=== PATIENT | female | born 1965 | race Hispanic/Latino ===

== ENCOUNTER 2021-09-06 18:46 | Emergency (ER) | payer SELFPAY ==
--- OUTSIDE RECORDS SUMMARY | 2021-09-06 18:49 | XMS REPORT | Continuity of Care Document ---
:1965 Author Organization [facility] t Address [address] [place] [address] [address]. [address] [place] [address] Care Team Providers Name Role Phone Leonie Benitez Primary Care Physician Leonie Benitez Attending Clinician Kelly Hernandez LMSW Attending Clinician Дмитрий Dawkins MD Attending Clinician Problems Condition Condition Condition Status Onset Resolution Last Treating Co mments Source Name Details Category Date Date Treatment Clinician Date Uninsured Uninsured Disease Active Uni vers 3-24 ity of 00:00: [place] 00 [facility] Noncomplia Noncomplia Disease Active U sd nce with nce with 3-24 [place] testing [place] 00 [facility] Hyperthyro Hyperthyro Disease Active U nivhemanth idism idism 11-06 ity of 00:00: [place] 00 [facility] 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 11-06 it y of fic fic 00:00: [place] alkaline alkaline 00 Medica l phosphatas phosphatas Br anch e e Thrombocyt Thrombocyt Disease Active U nivers openia openia 11-06 ity of 00:00: [place] 00 [facility] Beta Beta Disease Active Univers thalassemi thalassemi 11-06 it y of a trait a trait 00:00: [place] 00 [facility] Tobacco Tobacco Disease Active Univers use use 11-01 ity of 00:00: Medical Branch DM2 DM2 Disease Active Univers (diabetes (diabetes [place] of mellitus, mellitus[place] type 2[place] type 2) Medical [facility] Allergic Allergic Disease Active Unive rs rhinitis rhinitis ity of [facility] Anxiety Anxiety Disease Active Univers ity of [facility] Peripheral Peripheral Disease Active U nivers neuropathy neuropathy it y of [facility] Allergies, Adverse Reactions, Alerts This patient has no known allergies or adverse reactions. Social History Social Habit Start Date Stop Date Quantity Comments Source History SDOH University o f Alcohol Frequency [facility] edical History SDNC University o f Alcohol Std Drinks [facility] Branch History [facility] University o f Alcohol Binge [facility] al Branch Exposure to Not sure [place] of SARS-CoV-2 (event) [facility] History of tobacco Cigarette Smoker University of use [facility] Alcohol intake 2021-08-22 2021-08-22 Current drinker Unive rsity of 00:00:00 00:00:00 of alcohol [facility] (finding) Branch Cigarettes smoked 2017-10-20 2017-10-20 Univers ity of current (pack per 00:00:00 00:00:00 [facility] ) - Reported Branch Tobacco use and 2017-10-20 2017-10-20 Never used Universit y of exposure 00:00:00 00:00:00 [facility] Alcohol Comment 2017-10-20 2017-10-20 special Universit y of 00:00:00 00:00:00 occasions [facility] Sex [birth year] Universit y of 00:00:00 00:00:00 [facility] Smoking Status Start Date Stop Date Source Current every day smoker 2017-10-20 00:00:00 Uni versity of [facility] Medications Ordered Filled Start Stop Current Ordering Indication Dosage Frequency Signature Comments Components Source Medication Medication Date Date Medication? Clinician (SIG) Name Name metFORMIN Yes [id number] 500mg Take 1 U nivers 500 mg 3-23 tablet by ity of tablet 00:00: mouth 3 (three) Medical times [place] daily with meals. loratadine Yes [id number] 10mg Take 1 U nivers 10 mg 3-23 tablet by ity of tablet 00:00: mouth once [place] 00 daily as Medical needed for Branch Allergies. gabapentin 0 Yes [id number] 300mg Take 1 Univers 300 mg 3-23 capsule by ity of capsule 00:00: mouth 3 (three) Medical times Branch daily. fluticasone 2021-0 Yes [id number] 2{spray Use 2 Univers propionate 3-23 } Sprays in ity of 50 00:00: each [place] mcg/actuati 00 nostril Medic al on nasal daily. Branch spray busPIRone 0 Yes [id number] 15mg Take 1 Un ar[place] 15 mg 3-23 tablet by ity of tablet 00:00: mouth 2 (two) Medical times Branch daily as needed (anxiety). metFORMIN 2021-0 Yes [id number] 500mg Take 1 U nivers 500 mg 3-23 tablet by ity of tablet 00:00: mouth 3 (three) Medical times Branch daily with meals. loratadine Yes [id number] 10mg Take 1 U nivers 10 mg 3-23 tablet by ity of tablet 00:00: mouth once 00 daily as Medical needed for Branch Allergies. gabapentin Yes [id number] 300mg Take 1 Univers 300 mg 3-23 capsule by ity of capsule 00:00: mouth 3 (three) Medical times Branch daily. fluticasone 2021-0 Yes [id number] 2{spray Use 2 Univers propionate 3-23 } Sprays in ity of 50 00:00: each [place] mcg/actuati 00 nostril Medic al on nasal daily. Branch spray busPIRone 0 Yes [id number] 15mg Take 1 Un [place] 15 mg 3-23 tablet by ity of tablet 00:00: mouth 2 (two) Medical times Branch daily as needed (anxiety). metFORMIN 2021-0 Yes [id number] 500mg Take 1 U nivers 500 mg 3-23 tablet by ity of tablet 00:00: mouth 3 (three) Medical times Branch daily with meals. loratadine 2021-0 Yes [id number] 10mg Take 1 U nivers 10 mg 3-23 tablet by ity of tablet 00:00: mouth once 00 daily as Medical needed for Branch Allergies. gabapentin 2021-0 Yes [id number] 300mg Take 1 Univers 300 mg 3-23 capsule by ity of capsule 00:00: mouth 3 [place] 00 (three) Medical times Branch daily. fluticasone Yes [id number] 2{spray Use 2 Univers propionate 3-23 } Sprays in ity of 50 00:00: each [place] mcg/actuati 00 nostril Medic al on nasal daily. Branch spray busPIRone Yes [id number] 15mg Take 1 Un [place] 15 mg 3-23 tablet by ity of tablet 00:00: mouth 2 [place] 00 (two) Medical times Branch daily as needed (anxiety). metFORMIN Yes [id number] 500mg Take 1 U nivers 500 mg 3-23 tablet by ity of tablet 00:00: mouth 3 00 (three) Medical times Branch daily with meals. loratadine Yes [id number] 10mg Take 1 U nivers 10 mg 3-23 tablet by ity of tablet 00:00: mouth once [place] 00 daily as Medical needed for Branch Allergies. gabapentin Yes [id number] 300mg Take 1 Univers 300 mg 3-23 capsule by ity of capsule 00:00: mouth 3 [place] 00 (three) Medical times Branch daily. fluticasone Yes [id number] 2{spray Use 2 Univers propionate 3-23 } Sprays in ity of 50 00:00: each [place] mcg/actuati 00 nostril Medic al on nasal daily. Branch spray busPIRone Yes [id number] 15mg Take 1 Un [place] 15 mg 3-23 tablet by ity of tablet 00:00: mouth 2 [place] 00 (two) Medical times Branch daily as needed (anxiety). metFORMIN 2021- No [id number] 500mg Take 1 Univers 500 mg 06-12-23 tablet by ity of tablet 00:00: 00:00 mouth 3 [place] 00 :00 (three) Medical times Branch daily with meals. gabapentin 2- No [id number] 300mg Take 1 Univers 300 mg 1-05 03-23 capsule by ity of capsule 00:00: 00:00 mouth 3 [place] 00 :00 (three) Medical times Branch daily. busPIRone 2- No [id number] 15mg Take 1 U nivers 15 mg 1-12 03-23 tablet by ity of tablet 00:00: 00:00 mouth 2 [place] 00 :00 (two) Medical times Branch daily as needed (anxiety). loratadine 2021- No [id number] 10mg Take 1 Univers 10 mg 06-12 tablet by ity of tablet 00:00: 00:00 [place] once [place] :00 daily as Medical needed for Branch Allergies. fluticasone 2021- No [id number] 2{spray Use 2 Univers propionate 06-12 } Sprays in ity of 50 00:00: 00:00 each [place] mcg/actuati 00 :00 nostril Medic al on nasal daily. Branch spray metFORMIN 2021- No [id number] 500mg Take 1 Univers 500 mg 06-12 tablet by ity of tablet 00:00: 00:00 mouth 3 [place] 00 :00 (three) Medical times Branch daily with meals. gabapentin 2021- No [id number] 300mg Take 1 Univers 300 mg 06-12 capsule by ity of capsule 00:00: 00:00 mouth 3 [place] 00 :00 (three) Medical times Branch daily. busPIRone 2021- No [id number] 15mg Take 1 U nivers 15 mg 06-12 tablet by ity of tablet 00:00: 00:00 mouth 2 [place] 00 :00 (two) Medical times Branch daily as needed (anxiety). loratadine 2021- No [id number] 10mg Take 1 Univers 10 mg 06-12 tablet by ity of tablet 00:00: 00:00 mouth once [place] 00 :00 daily as Medical needed for Branch Allergies. fluticasone 2021- No [id number] 2{spray Use 2 Univers propionate 06-12 } Sprays in ity of 50 00:00: 00:00 each [place] mcg/actuati 00 :00 nostril Medic al on nasal daily. Branch spray Vital Signs Vital Name Observation Time Observation Value Comments Source Systolic blood 2021-08-21 14:05:00 138 mm[facility]Hg[facility] pressure Medical Branch Diastolic blood 2021-08-21 14:05:00 79 mm[Hg] [facility] pressure [facility] Heart rate 2021-08-21 14:00:00 76 /min [facility] Body height 2021-08-21 14:00:00 162.6 cm [facility] Body weight 2021-08-21 14:00:00 91.173 kg [facility] BMI 2021-08-21 14:00:00 34.50 kg/m2 [facility] Oxygen saturation 2021-08-21 14:00:00 98 /min [facility] in Arterial blood Medical anch by Pulse oximetry Procedures This patient has no known procedures. Encounters Start End Encounter Admission Attending Care Care Encounter Source Date/Time Date/Time Type Type Clinicians Facility Department ID 2021-08-30 2021-08-30 Telephone Dede [facility] [id number] Univers 00:00:00 00:00:00 Heekya [id number] it [facility] [id number] Akil as ISABELLE?BLEA [id number] [address] MEDICAL OFFICE BUILDING 2021-08-23 2021-08-23 Patient David [facility] [id number] Univers 00:00:00 00:00:00 Outreach Kelly D Warp 9 [id number] ity of [place] [id number] Akil as PROFESSIO [id number] [address] OFFICE BUILDING ONE 2021-08-21 2021-08-21 Office Juancho [facility] [id number] Univers 09:00:00 09:48:43 Visit WonPlayrific A Warp 9 [id number] ity of [place] [id number] Akil as ISABELLE?BLEA [id number] [address] OFFICE BUILDING Results This patient has no known results.
[2021-09-06] MEDS ORDERED: ACETAMINOPHEN 500 MG TAB ONE (19:07)
[2021-09-06] MEDS ORDERED: IBUPROFEN 200 MG TAB PO ONE (20:02)
[2021-09-06] MEDS ORDERED: ONDANSETRON 4 MG/2 ML VIAL ONE (20:02)
[2021-09-06] MEDS ORDERED: NA CHLORIDE 0.9% 1,000 ML ONE (20:02)
[2021-09-06 20:14] LABS: Absolute Lymphocytes (CBC) 0.5 K/uL (0.7-4.9); Hematocrit 39.1 % (36.0-45.0); Lymphocytes % 4.9 % (15.3-44.8); MPV 9.6 fL (7.6-11.3); RBC Red Blood Cell Count 6.52 M/uL (3.86-4.86)
[2021-09-06 20:21] LABS: SARS-COV-2 RT PCR NEGATIVE (NEGATIVE)
[2021-09-06 20:28] LABS: Albumin 2.8 g/dL (3.4-5.0); Bilirubin Total 1.2 mg/dL (0.2-1.0); Potassium 3.7 mmol/L (3.5-5.1); Protein, Total 7.1 g/dL (6.4-8.2)
--- NOTE | 2021-09-06 20:48 | EDPHYS ---
Physician Documentation [facility] [place] [facility] Name: Remedios Elizalde Age: 56 yrs Sex: Female : 1965 Arrival Date: 09/06/2021 Time: 18:49 Bed 12 Private MD: ED Physician Edward Brock HPI: 09/06 19:54 This 56 yrs old Female presents to ER via Ambulatory with complaints of Fever, ms3 Dizziness, Vomiting. 19:54 The patient reports fever, not measured (subjective). Onset: The symptoms/episode ms3 began/occurred 2 day(s) ago. Modifying factors: there are no obvious modifying factors. Associated signs and symptoms: Pertinent positives: chills, nausea, vomiting, Pertinent negatives: abdominal pain, diarrhea. 56-year-old female with past medical history of diabetes presents for lightheadedness, fever began 2 days prior to arrival. Patient denies pain. Patient denies alleviating or inciting factors. Patient endorses subjective fever, chills, nausea, vomiting, lightheadedness. Patient denies diarrhea, abdominal pain, urinary symptoms.. Historical: - Allergies: 19:00 No Known Allergies; ab2 - PMHx: 19:00 None; ab2 - PSHx: 19:00 None; ab2 - Immunization history:: Adult Immunizations up to date. - Social history:: Smoking status: Patient reports the use of cigarette tobacco products, smokes one-half pack cigarettes per day. ROS: 19:54 Eyes: Negative for injury, pain, redness, and discharge, Cardiovascular: Negative for ms3 chest pain, and palpitations. Respiratory: Negative for shortness of breath, cough, wheezing, and pleuritic chest pain, MS/Extremity: Negative for injury and deformity, Skin: Negative for injury, rash, and discoloration, Psych: Negative for depression, anxiety, suicide ideation, homicidal ideation, and hallucinations. 19:54 Constitutional: Positive for chills. 19:54 Abdomen/GI: Positive for nausea and vomiting, Negative for abdominal pain, diarrhea. 19:54 Neuro: Positive for 19:54 All other systems are negative. Exam: 19:54 Constitutional: This is a well developed, well nourished patient who is awake, alert, ms3 and in no acute distress. Head/Face: Normocephalic, atraumatic. Chest/axilla: Normal chest wall appearance and motion. Nontender with no deformity. Cardiovascular: Regular rate and rhythm with a normal S1 and S2. No gallops, murmurs, or rubs. Normal PMI, no JVD. No pulse deficits. Respiratory: Lungs have equal breath sounds bilaterally, clear to auscultation and percussion. No rales, rhonchi or wheezes noted. No increased work of breathing, no retractions or nasal flaring. Abdomen/GI: Soft, non-tender, with normal bowel sounds. No distension or tympany. No guarding or rebound. No evidence of tenderness throughout. Back: No spinal tenderness. No costovertebral tenderness. Full range of motion. Skin: Warm, dry with normal turgor. Normal color with no rashes, no lesions, and no evidence of cellulitis. Psych: Awake, alert, with orientation to person, place and time. Behavior, mood, and affect are within normal limits. Vital Signs: 18:58 BP 111 / 70; Pulse 107; Resp 20; Temp 102.8(O); Pulse Ox 98% on R/A; Weight 90.72 kg; ab2 Height 5 ft. 4 in. (162.56 cm); Pain 0/10; 20:22 BP 118 / 72; Pulse 84 MON; Resp 16 S; Pulse Ox 100% on R/A; Pain 0/10; ag7 20:30 BP 113 / 64; Pulse 83; Resp 16 S; Pulse Ox 100% on R/A; Pain 0/10; ag7 21:00 BP 153 / 80; Pain 0/10; ag7 18:58 Body Mass Index 34.33 (90.72 kg, 162.56 cm) ab2 MDM: 19:28 Patient medically screened. ms3 19:54 Differential diagnosis: viral Infection, gastroenteritis, COVID. ms3 21:15 Data reviewed: vital signs, nurses notes, lab test result(s). Data interpreted: Pulse ms3 oximetry: on room air is 98 %. Interpretation: normal. Counseling: I had a detailed discussion with the patient and/or guardian regarding: the historical points, exam findings, and any diagnostic results supporting the discharge/admit diagnosis, lab results, the need for outpatient follow up, to return to the emergency department if symptoms worsen or persist or if there are any questions or concerns that arise at home. Medication response: Zofran markedly relieved the patient's nausea. Response to treatment: the patient's symptoms have markedly improved after treatment, patient is well hydrated. ED course: Discussed labs, physical exam findings with patient and her . Patient to follow-up with her primary care physician as discussed. All questions were answered. Return precautions discussed include worsening symptoms, or any other concerns. Reevaluation patient symptoms improved, no apparent distress, nontoxic, ambulatory in the emergency department, tolerating p.o.. 09/06 19:01 Order name: COVID-19/FLU A+B (Document "Date of Onset" if Symptomatic); Complete Time: kb 20:36 09/06 19:29 Order name: CBC with Diff ms3 09/06 19:29 Order name: CMP; Complete Time: 20:36 ms3 09/06 19:29 Order name: IV Saline Lock; Complete Time: 19:54 ms3 09/06 19:29 Order name: Labs collected and sent; Complete Time: 19:54 ms3 Administered Medications: 19:04 Drug: Tylenol 1000 mg Route: PO; ab2 19:34 Follow up: Response: No adverse reaction ag7 20:07 Drug: Ibuprofen 600 mg Route: PO; ag7 20:37 Follow up: Response: No adverse reaction ag7 20:08 Drug: NS 0.9% 1000 ml Route: IV; Rate: 1000 ml; Site: right wrist; ag7 21:08 Follow up: Response: No adverse reaction; IV Status: Completed infusion; IV Intake: ag7 1000ml 20:08 Drug: Zofran (Ondansetron) 4 mg Route: IVP; Site: right wrist; ag7 20:37 Follow up: Response: No adverse reaction ag7 Disposition Summary: 09/06/21 20:48 Discharge Ordered Location: Home ms3 Problem: new ms3 Symptoms: have improved ms3 Condition: Stable ms3 Diagnosis - Vomiting ms3 - Fever, unspecified ms3 - Viral illness ms3 - Dehydration ms3 Followup: ms3 - With: Private Physician - When: 2 - 3 days - Reason: Re-evaluation by your physician Discharge Instructions: - Discharge Summary Sheet ms3 - Dehydration, Adult ms3 - Nausea and Vomiting, Adult ms3 Forms: - Medication Reconciliation Form ms3 - Thank You Letter ms3 - Antibiotic Education ms3 - Prescription Opioid Use ms3 Prescriptions: - Zofran 4 mg Oral Tablet - take 1 tablet by ORAL route every 8-12 hours As needed; 20 tablet; Refills: 0, ms3 Product Selection Permitted Signatures: Dispatcher [employer] Ramona Madsen, BIOMASS FACILITATOR-C BIOMASS FACILITATOR-CkEdward Coe, DO ms3 Kervin Stewart ab2 Denisse Mitchell, RN RN ag7
--- NOTE | 2021-09-06 20:48 | ER ---
Nurse's Notes [facility] Name: Remedios Elizalde Age: 56 yrs Sex: Female : 1965 Arrival Date: 09/06/2021 Time: 18:49 Bed 12 Private MD: Diagnosis: Vomiting;Fever, unspecified;Viral illness;Dehydration Presentation: 09/06 18:58 Chief complaint: Patient states: "For the past few days I have been having a fever and ab2 I've been dizzy." Pt c/o n/v, fever, cough. Coronavirus screen: Vaccine status: Patient reports receiving the 2nd dose of the covid vaccine. Client denies travel out of the [place] in the last 14 days. cough unrelated to allergies, fever, nausea, vomiting. Client presents with at least one sign or symptom that may indicate coronavirus-19. Standard/surgical mask placed on the client. Provider contacted for isolation considerations. Ebola Screen: Patient negative for fever greater than or equal to 101.5 degrees Fahrenheit, and additional compatible Ebola Virus Disease symptoms Patient denies exposure to infectious person. Patient denies travel to an Ebola-affected area in the 21 days before illness onset. No symptoms or risks identified at this time. Initial Sepsis Screen: Does the patient meet any 2 criteria? No. Patient's initial sepsis screen is negative. Does the patient have a suspected source of infection? No. Patient's initial sepsis screen is negative. Risk Assessment: Do you want to hurt yourself or someone else? Patient reports no desire to harm self or others. Onset of symptoms is unknown. 18:58 Method Of Arrival: Ambulatory ab2 18:58 Acuity: KAYLA 3 ab2 Triage Assessment: 19:01 General: Appears in no apparent distress. uncomfortable, Behavior is calm, cooperative, ab2 appropriate for age. Pain: Denies pain. EENT: No deficits noted. Neuro: Level of Consciousness is awake, alert, obeys commands, Oriented to person, place, time, situation, Appropriate for age Remedial [place] are equal bilaterally Moves all extremities. Gait is steady, Speech is normal, Facial symmetry appears normal, Reports dizziness. Cardiovascular: No deficits noted. Denies chest pain, shortness of breath, Patient's skin is warm and dry. Respiratory: Airway is patent Respiratory effort is even, unlabored, Respiratory pattern is regular, symmetrical. GI: Reports nausea, vomiting. : No deficits noted. No signs and/or symptoms were reported regarding the genitourinary system. Derm: Skin temperature is hot. Historical: - Allergies: 19:00 No Known Allergies; ab2 - PMHx: 19:00 None; ab2 - PSHx: 19:00 None; ab2 - Immunization history:: Adult Immunizations up to date. - Social history:: Smoking status: Patient reports the use of cigarette tobacco products, smokes one-half pack cigarettes per day. Screenin:31 Abuse screen: Denies threats or abuse. Nutritional screening: No deficits noted. ag7 Tuberculosis screening: No symptoms or risk factors identified. Fall Risk No fall in past 12 months (0 pts). No secondary diagnosis (0 pts). IV access (20 points). Ambulatory Aid- None/Bed Rest/Nurse Assist (0 pts). Gait- Normal/Bed Rest/Wheelchair (0 pts) Mental Status- Oriented to own ability (0 pts). Total Hickman Fall Scale indicates No Risk (0-24 pts). Assessment: 19:04 General: Appears in no apparent distress. well groomed, well developed, Behavior is ag7 calm, cooperative, appropriate for age, Reports fever for. Pain: Denies pain. Neuro: Level of Consciousness is awake, alert, obeys commands, Oriented to Appropriate for age. Cardiovascular: Heart tones S1 S2 present Capillary refill < 3 seconds in bilateral fingers toes Patient's skin is warm and dry. Pulses are all present. Edema is absent. Respiratory: Airway is patent Trachea midline Respiratory effort is even, unlabored, Respiratory pattern is regular, symmetrical, Breath sounds are clear bilaterally. GI: Abdomen is obese, Bowel sounds present X 4 quads. Abd is soft and non tender X 4 quads. Reports nausea. 20:00 Reassessment: Patient and/or family updated on plan of care and expected duration. Pain ag7 level reassessed. Patient is alert, oriented x 3, equal unlabored respirations, skin warm/dry/pink. Patient denies pain at this time. Vital Signs: 18:58 BP 111 / 70; Pulse 107; Resp 20; Temp 102.8(O); Pulse Ox 98% on R/A; Weight 90.72 kg; ab2 Height 5 ft. 4 in. (162.56 cm); Pain 0/10; 20:22 BP 118 / 72; Pulse 84 MON; Resp 16 S; Pulse Ox 100% on R/A; Pain 0/10; ag7 20:30 BP 113 / 64; Pulse 83; Resp 16 S; Pulse Ox 100% on R/A; Pain 0/10; ag7 21:00 BP 153 / 80; Pain 0/10; ag7 18:58 Body Mass Index 34.33 (90.72 kg, 162.56 cm) ab2 ED Course: 18:49 Patient arrived in ED. mr 19:00 Triage completed. ab2 19:01 Arm band placed on right wrist. ab2 19:05 COVID-19/FLU A+B (Document "Date of Onset" if Symptomatic) Sent. ab2 19:12 Edward Brock DO is Attending Physician. ms3 20:32 Patient has correct armband on for positive identification. Bed in low position. Call ag7 light in reach. Side rails up X 1. Adult w/ patient. 20:59 Denisse Mitchell, RN is Primary Nurse. ag7 21:08 No provider procedures requiring assistance completed. IV discontinued, intact, ag7 bleeding controlled, No redness/swelling at site. Pressure dressing applied. Administered Medications: 19:04 Drug: Tylenol 1000 mg Route: PO; ab2 19:34 Follow up: Response: No adverse reaction ag7 20:07 Drug: Ibuprofen 600 mg Route: PO; ag7 20:37 Follow up: Response: No adverse reaction ag7 20:08 Drug: NS 0.9% 1000 ml Route: IV; Rate: 1000 ml; Site: right wrist; ag7 21:08 Follow up: Response: No adverse reaction; IV Status: Completed infusion; IV Intake: ag7 1000ml 20:08 Drug: Zofran (Ondansetron) 4 mg Route: IVP; Site: right wrist; ag7 20:37 Follow up: Response: No adverse reaction ag7 Intake: 21:08 IV: 1000ml; Total: 1000ml. ag7 Outcome: 20:48 Discharge ordered by . ms3 21:08 Patient left the ED. ag7 21:08 Discharged to home ambulatory. ag7 21:08 Condition: stable 21:08 Discharge instructions given to patient, Instructed on discharge instructions, follow up and referral plans. medication usage, Demonstrated understanding of instructions, follow-up care, medications, Prescriptions given X 1. Signatures: Leydi Red Marcus, DO DO ms3 Kervin Stewart ab2 Denisse Mitchell, RN RN ag7
[2021-09-06 21:56] LABS: White Blood Cell Scan OK (OK)
[2021-09-06 21:57] LABS: Blood Morphology Comment NOTED (NOT SEEN); Hypochromasia 1+; Platelet Estimate DECR
[2021-09-07 02:54] VITALS: BP 111/70; TEMP 102.8; O2SAT 98
== END 2021-09-06 21:08 | disposition home or self-care (01) ==
LOC: ER 18:46
DX: E86.0 Dehydration (principal); B34.9 Viral infection, unspecified; R50.9 Fever, unspecified; F17.210 Nicotine dependence, cigarettes, uncomplicated
CPT/HCPCS: 0240U; 36415; 80053; 85025; 96361; 96374; 99283; J2405; J7030

== ENCOUNTER 2021-09-08 03:21 | Inpatient (IN) | payer SELFPAY ==
--- OUTSIDE RECORDS SUMMARY | 2021-09-08 03:24 | XMS REPORT | Continuity of Care Document ---
:[address] [facility] t Address [address] [place] [address] [address]. [address] [place] [address] Care Team Providers Name Role Phone Leonie Benitez Primary Care Physician Leonie Benitez Attending Clinician Kelly Hernandez LMSW Attending Clinician Дмитрий Dawkins MD Attending Clinician Problems Condition Condition Condition Status Onset Resolution Last Treating Co mments Source Name Details Category Date Date Treatment Clinician Date Uninsured Uninsured Disease Active Uni vers 3-24 ity of 00:00: [place] 00 [facility] Noncomplia Noncomplia Disease Active U sd nce with nce with 3-24 [place] testing testing 00 [facility] Hyperthyro Hyperthyro Disease Active U nivhemanth idism idism 11-06 ity of 00:00: [place] 00 [facility] 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 11-06 it y of fic fic 00:00: [place] alkaline alkaline 00 Medica l phosphatas phosphatas Br anch e e Thrombocyt Thrombocyt Disease Active U nivers openia openia 11-06 ity of 00:00: [place] 00 [facility] Beta Beta Disease Active Univers thalassemi thalassemi 11-06 it y of a trait a trait 00:00: [place] 00 Medical Branch Tobacco Tobacco Disease Active Univers use use 11-01 ity of 00:00: Medical Branch DM2 DM2 Disease Active Univers (diabetes (diabetes [place] of mellitus, [place], [place] type 2[place] type 2) Medical Branch Allergic Allergic Disease Active Unive rs rhinitis rhinitis ity of [facility] Anxiety Anxiety Disease Active Univers ity of [facility] Peripheral Peripheral Disease Active U nivers neuropathy neuropathy it y of [facility] Allergies, Adverse Reactions, Alerts This patient has no known allergies or adverse reactions. Social History Social Habit Start Date Stop Date Quantity Comments Source History SDOH University o f Alcohol Frequency [facility] edical History SDFL University o f Alcohol Std Drinks [facility] Branch History [facility] University o f Alcohol Binge [facility] [place] [facility] al Branch Exposure to Not sure [place] of SARS-CoV-2 (event) [facility] History of tobacco Cigarette Smoker University of use [facility] Alcohol intake 2021-08-22 2021-08-22 Current drinker Unive rsity of 00:00:00 00:00:00 of alcohol [facility] (finding) Branch Cigarettes smoked 2017-10-20 2017-10-20 Univers ity of current (pack per 00:00:00 00:00:00 [facility] ) - Reported Branch Tobacco use and 2017-10-20 2017-10-20 Never used Universit y of exposure 00:00:00 00:00:00 [facility] Alcohol Comment 2017-10-20 2017-10-20 special Universit y of 00:00:00 00:00:00 occasions [facility] Sex [birth year] Universit y of 00:00:00 00:00:00 [facility] Smoking Status Start Date Stop Date Source Current every day smoker 2017-10-20 00:00:00 Uni versity of [facility] Medications Ordered Filled Start Stop Current Ordering Indication Dosage Frequency Signature Comments Components Source Medication Medication Date Date Medication? Clinician (SIG) Name Name metFORMIN Yes [id number] 500mg Take 1 U nivers 500 mg 3-23 tablet by ity of tablet 00:00: mouth 3 (three) Medical times [place] daily with meals. loratadine Yes [id number] 10mg Take 1 U nivers 10 mg 3-23 tablet by ity of tablet 00:00: mouth once [place] 00 daily as Medical needed for Branch Allergies. gabapentin 0 Yes [id number] 300mg Take 1 Univers 300 mg 3-23 capsule by ity of capsule 00:00: mouth 3 (three) Medical times Branch daily. fluticasone 2021-0 Yes [id number] 2{spray Use 2 Univers propionate 3-23 } Sprays in ity of 50 00:00: each [place] mcg/actuati 00 nostril Medic al on nasal daily. Branch spray busPIRone 0 Yes [id number] 15mg Take 1 Un [place] 15 mg 3-23 tablet by ity of tablet 00:00: mouth 2 (two) Medical times Branch daily as needed (anxiety). metFORMIN 2021-0 Yes [id number] 500mg Take 1 U nivers 500 mg 3-23 tablet by ity of tablet 00:00: mouth 3 (three) Medical times Branch daily with meals. loratadine Yes [id number] 10mg Take 1 U nivers 10 mg 3-23 tablet by ity of tablet 00:00: mouth once 00 daily as Medical needed for Branch Allergies. gabapentin Yes [id number] 300mg Take 1 Univers 300 mg 3-23 capsule by ity of capsule 00:00: mouth 3 (three) Medical times Branch daily. fluticasone 2021-0 Yes [id number] 2{spray Use 2 Univers propionate 3-23 } Sprays in ity of 50 00:00: each [place] mcg/actuati 00 nostril Medic al on nasal daily. Branch spray busPIRone 0 Yes [id number] 15mg Take 1 Un [place] 15 mg 3-23 tablet by ity of tablet 00:00: mouth 2 (two) Medical times Branch daily as needed (anxiety). metFORMIN 2021-0 Yes [id number] 500mg Take 1 U nivers 500 mg 3-23 tablet by ity of tablet 00:00: mouth 3 (three) Medical times Branch daily with meals. loratadine 2021-0 Yes [id number] 10mg Take 1 U nivers 10 mg 3-23 tablet by ity of tablet 00:00: mouth once 00 daily as Medical needed for Branch Allergies. gabapentin 2021-0 Yes [id number] 300mg Take 1 Univers 300 mg 3-23 capsule by ity of capsule 00:00: mouth 3 [place] 00 (three) Medical times Branch daily. fluticasone Yes [id number] 2{spray Use 2 Univers propionate 3-23 } Sprays in ity of 50 00:00: each [place] mcg/actuati 00 nostril Medic al on nasal daily. Branch spray busPIRone Yes [id number] 15mg Take 1 Un [place] 15 mg 3-23 tablet by ity of tablet 00:00: mouth 2 [place] 00 (two) Medical times Branch daily as needed (anxiety). metFORMIN Yes [id number] 500mg Take 1 U nivers 500 mg 3-23 tablet by ity of tablet 00:00: mouth 3 00 (three) Medical times Branch daily with meals. loratadine Yes [id number] 10mg Take 1 U nivers 10 mg 3-23 tablet by ity of tablet 00:00: mouth once [place] 00 daily as Medical needed for Branch Allergies. gabapentin Yes [id number] 300mg Take 1 Univers 300 mg 3-23 capsule by ity of capsule 00:00: mouth 3 [place] 00 (three) Medical times Branch daily. fluticasone Yes [id number] 2{spray Use 2 Univers propionate 3-23 } Sprays in ity of 50 00:00: each [place] mcg/actuati 00 nostril Medic al on nasal daily. Branch spray busPIRone Yes [id number] 15mg Take 1 Un [place] 15 mg 3-23 tablet by ity of tablet 00:00: mouth 2 [place] 00 (two) Medical times Branch daily as needed (anxiety). metFORMIN 2021- No [id number] 500mg Take 1 Univers 500 mg 06-12-23 tablet by ity of tablet 00:00: 00:00 mouth 3 [place] 00 :00 (three) Medical times Branch daily with meals. gabapentin 2- No [id number] 300mg Take 1 Univers 300 mg 1-05 03-23 capsule by ity of capsule 00:00: 00:00 mouth 3 [place] 00 :00 (three) Medical times Branch daily. busPIRone 2- No [id number] 15mg Take 1 U nivers 15 mg 1-12 03-23 tablet by ity of tablet 00:00: 00:00 mouth 2 [place] 00 :00 (two) Medical times Branch daily as needed (anxiety). loratadine 2021- No [id number] 10mg Take 1 Univers 10 mg 06-12 tablet by ity of tablet 00:00: 00:00 [place] once [place] :00 daily as Medical needed for Branch Allergies. fluticasone 2021- No [id number] 2{spray Use 2 Univers propionate 06-12 } Sprays in ity of 50 00:00: 00:00 each [place] mcg/actuati 00 :00 nostril Medic al on nasal daily. Branch spray metFORMIN 2021- No [id number] 500mg Take 1 Univers 500 mg 06-12 tablet by ity of tablet 00:00: 00:00 mouth 3 [place] 00 :00 (three) Medical times Branch daily with meals. gabapentin 2021- No [id number] 300mg Take 1 Univers 300 mg 06-12 capsule by ity of capsule 00:00: 00:00 mouth 3 [place] 00 :00 (three) Medical times Branch daily. busPIRone 2021- No [id number] 15mg Take 1 U nivers 15 mg 06-12 tablet by ity of tablet 00:00: 00:00 mouth 2 [place] 00 :00 (two) Medical times Branch daily as needed (anxiety). loratadine 2021- No [id number] 10mg Take 1 Univers 10 mg 06-12 tablet by ity of tablet 00:00: 00:00 mouth once [place] 00 :00 daily as Medical needed for Branch Allergies. fluticasone 2021- No [id number] 2{spray Use 2 Univers propionate 06-12 } Sprays in ity of 50 00:00: 00:00 each [place] mcg/actuati 00 :00 nostril Medic al on nasal daily. Branch spray Vital Signs Vital Name Observation Time Observation Value Comments Source Systolic blood 2021-08-21 14:05:00 138 mm[facility]Hg[facility] pressure Medical Branch Diastolic blood 2021-08-21 14:05:00 79 mm[Hg] [facility] pressure [facility] Heart rate 2021-08-21 14:00:00 76 /min [facility] Body height 2021-08-21 14:00:00 162.6 cm [facility] Body weight 2021-08-21 14:00:00 91.173 kg [facility] BMI 2021-08-21 14:00:00 34.50 kg/m2 [facility] Oxygen saturation 2021-08-21 14:00:00 98 /min [facility] in Arterial blood Medical anch by Pulse oximetry Procedures This patient has no known procedures. Encounters Start End Encounter Admission Attending Care Care Encounter Source Date/Time Date/Time Type Type Clinicians Facility Department ID 2021-08-30 2021-08-30 Telephone Dede [facility] [id number] Univers 00:00:00 00:00:00 [facility] [id number] it y [facility] [id number] Akil as ISABELLE?BLEA [id number] [address] MEDICAL OFFICE BUILDING 2021-08-23 2021-08-23 Patient David [facility] [id number] Univers 00:00:00 00:00:00 Outreach Kelly D Misticom [id number] ity of [place] [id number] Akil as PROFESSIO [id number] [address] OFFICE BUILDING ONE 2021-08-21 2021-08-21 Office Juancho [facility] [id number] Univers 09:00:00 09:48:43 Visit [employer] A Misticom [id number] ity of [place] [id number] Akil as ISABELLE?BLEA [phone] [address] OFFICE BUILDING Results This patient has no known results.
[2021-09-08 03:50] LABS: Urine Blood 2+ (Negative); Urine Glucose 2+ (Negative); Urine Protein 2+ (Negative)
[2021-09-08 03:58] LABS: Arterial Blood Carboxyhemoglob 1.1 % (0-1.5); Blood O2 Saturation 96.1 % (92-98.5)
[2021-09-08] MEDS ORDERED: IPRATROPIUM BROM 0.5MG/2.5ML ONE (04:01)
[2021-09-08] MEDS ORDERED: ACETAMINOPHEN 500 MG TAB ONE (04:01)
[2021-09-08] MEDS ORDERED: ALBUTEROL 2.5 MG/3 ML NEB SOL ONE (04:01)
[2021-09-08 04:06] LABS: Urine Appearance CLOUDY (Clear); Urine Bilirubin NEGATIVE (Negative); Urine Blood 2+ (Negative); Urine Color YELLOW (Yellow); Urine Glucose 3+ (Negative); Urine Protein 2+ (Negative); Urine Specific Gravity 1.025 (1.005-1.030)
[2021-09-08 04:07] LABS: Urine Microscopic Reflex ORDER UMIC
[2021-09-08] MEDS ORDERED: NA CHLORIDE 0.9% 50 ML ONE (04:12)
[2021-09-08] MEDS ORDERED: CEFTRIAXONE 1000 MG/VIAL ONE (04:12)
[2021-09-08 04:20] LABS: Urine Amorphous Sediment 1+ /HPF (NONE SEEN); Urine Bacteria >50 /HPF (<20); Urine Coarse Granular Casts 0-5 /LPF (NONE SEEN); Urine Mucus 3+ /HPF (NONE SEEN)
--- NOTE | 2021-09-08 04:28 | ER ---
Nurse's Notes [facility] Name: Remedios Elizalde Age: 56 yrs Sex: Female : 1965 Arrival Date: 09/08/2021 Time: 03:22 Bed 3 Private MD: Diagnosis: Pyelonephritis acute;Fever, unspecified;Vomiting;Severe sepsis with septic shock;Elevated troponin Presentation: 09/08 03:30 Initial Sepsis Screen: Does the patient meet any 2 criteria? RR > 20 per min. Temp as6 <36.0*C (96.8*F)) or > 38.3*C (100.9*F). Altered Mental Status. Yes Does the patient have a suspected source of infection? No. Patient's initial sepsis screen is negative. Risk Assessment: Do you want to hurt yourself or someone else? Unable to obtain. 03:31 Chief complaint: Spouse and/or significant other states: reports patient woke lp1 up reporting difficulty breathing; Patient assisted out of vehicle at ED, diaphoretic, short of breath. Coronavirus screen: difficulty breathing, shortness of breath. Ebola Screen: No symptoms or risks identified at this time. Onset of symptoms was September 08, 2021. 03:31 Method Of Arrival: Wheelchair lp1 03:31 Acuity: KAYLA 2 lp1 Triage Assessment: 04:26 Respiratory: lg3 04:59 Respiratory: Onset: The symptoms/episode began/occurred today. lg3 07:26 Respiratory: Reports. vg1 Historical: - Allergies: 04:23 No Known Allergies; as6 - PMHx: 04:23 Diabetes mellitus; as6 - PSHx: 04:48 Cholecystectomy; Ligation of fallopian tube; as6 - Immunization history:: Adult Immunizations unknown. - Social history:: Smoking status: unknown. Screenin:21 Abuse screen: Denies threats or abuse. Denies injuries from another. Nutritional lg3 screening: No deficits noted. Tuberculosis screening: No symptoms or risk factors identified. Fall Risk Mental Status- Overestimates/Forgets Limitations (15 pts.). 04:24 Abuse screen: Denies threats or abuse. Denies injuries from another. Nutritional as6 screening: No deficits noted. Tuberculosis screening: No symptoms or risk factors identified. Fall Risk Mental Status- Overestimates/Forgets Limitations (15 pts.). Total Hickman Fall Scale indicates No Risk (0-24 pts). Assessment: 04:21 General: Appears in no apparent distress. uncomfortable, Behavior is anxious, lg3 inappropriate for age, confused. Pain: Denies pain. Neuro: Level of Consciousness is awake, alert, confused, stuporous, Oriented to person, place, Speech is normal. Cardiovascular: No deficits noted. Capillary refill < 3 seconds Clubbing of nail beds is absent JVD is absent Rhythm is sinus tachycardia. Respiratory: Airway is patent Trachea midline Respiratory effort is even, Respiratory pattern is tachypnea Breath sounds with wheezes bilaterally. GI: No deficits noted. Abdomen is round non-distended, Parent/caregiver reports the patient having nausea, vomiting. : No deficits noted. No signs and/or symptoms were reported regarding the genitourinary system. EENT: No deficits noted. No signs and/or symptoms were reported regarding the EENT system. Derm: Skin is intact, is healthy with good turgor, Skin is diaphoretic, Skin temperature is hot. Musculoskeletal: No deficits noted. No signs and/or symptoms reported regarding the musculoskeletal system. Circulation, motion, and sensation intact. Range of motion: intact in all extremities. 04:58 Reassessment: Patient states symptoms have improved. Neuro: No deficits noted. Level of lg3 Consciousness is awake, alert, obeys commands, Oriented to person, place, time, situation, Speech is normal. Respiratory: Denies shortness of breath labored breathing. 06:06 General: pt AAOx4. pt states she does not remember coming here but says she now feels as6 more like herself . 08:26 Reassessment: Patient appears in no apparent distress at this time. Patient is alert, vg1 oriented x 3, equal unlabored respirations, skin warm/dry/pink. Report given to Aspen RUIZ in ICU, pt going to bed 1 Patient denies pain at this time. Vital Signs: 03:30 BP 132 / 70; Pulse 123; Resp 28 S; Temp 105.4(C); Pulse Ox 96% on R/A; Weight 104.33 kg;as6 04:22 BP 101 / 56; Pulse 95; Resp 26 S; Temp 105.2(C); Pulse Ox 100% on 7% Nebulizer Mask; as6 04:49 BP 110 / 61; Pulse 103; Resp 20 S; Temp 104.2(C); Pulse Ox 100% on R/A; as6 05:15 BP 105 / 58; Pulse 99; Resp 18 S; Temp 103.3(C); Pulse Ox 98% on R/A; as6 05:45 BP 99 / 58; Pulse 95; Resp 21 S; Temp 102.8(C); Pulse Ox 98% on R/A; as6 06:30 BP 98 / 59; Pulse 92; Resp 20 S; Temp 101.9(C); Pulse Ox 95% on R/A; as6 06:57 BP 105 / 65; Pulse 91; Resp 18 S; Temp 101.7(C); Pulse Ox 96% on R/A; as6 ED Course: 03:22 Patient arrived in ED. kz 03:23 Edward Brock DO is Attending Physician. ms3 03:35 Triage completed. lp1 03:39 Carlos Canchola, RN is Primary Nurse. as6 03:40 Inserted saline lock: 20 gauge in right forearm, using aseptic technique. Blood as6 collected. 03:45 Arthur cath inserted, using sterile technique, 16 Fr., by ma, balloon inflated, to as6 gravity drainage, urine specimen collected. 03:50 Urinalysis Sent. as6 03:56 XRAY Chest (1 view) In Process Unspecified. EDMS 03:58 Blood Culture Adult (2) Sent. lg3 03:58 CMP Sent. lg3 03:58 Lactate Sent. lg3 03:58 Protime (+inr) Sent. lg3 03:58 Ptt, Activated Sent. lg3 03:59 ABG Sent. lg3 03:59 CBC with Diff Sent. lg3 03:59 Magnesium Sent. lg3 03:59 NT PRO-BNP Sent. lg3 03:59 Troponin HS Sent. lg3 04:19 AMMONIA Sent. lg3 04:21 CT Head Brain wo Cont In Process Unspecified. EDMS 04:21 CT Abd/Pelvis - IV Contrast Only In Process Unspecified. EDMS 04:21 CT Chest For PE Angio In Process Unspecified. EDMS 04:21 Initial Neb Treatment Given as ordered Patient tolerated procedure well without adverse lg3 effect. Thermoregulation: ice packs applied to underarm's and groin. 04:21 Patient has correct armband on for positive identification. Placed in gown. Bed in low lg3 position. Call light in reach. Side rails up X2. family at bedside. shelter monitor on. Pulse ox on. NIBP on. 04:24 Arm band placed on. as6 04:25 Placed in gown. Bed in low position. Call light in reach. Side rails up X2. Adult w/ as6 patient. shelter monitor on. Pulse ox on. NIBP on. 04:28 Jonathan Ordoñez is Hospitalizing Provider. ms3 04:46 Notified ED physician of a critical lab result(s). platelet count 41. lp1 04:58 COVID-19/FLU A+B (Document "Date of Onset" if Symptomatic) Sent. lg3 05:14 Notified the Hospitalist of a critical lab result(s), Troponin 291.3, Lactate 5.5. lp1 07:26 No provider procedures requiring assistance completed. Patient admitted, IV remains in vg1 place. Administered Medications: 04:20 Drug: Tylenol 1000 mg Route: PO; lg3 04:20 Follow up: Response: No adverse reaction lg3 04:20 Drug: Rocephin (cefTRIAXone) 1 grams Route: IV; Rate: calculated rate; Site: right lg3 forearm; 04:51 Follow up: Response: No adverse reaction; IV Status: Completed infusion; IV Intake: 24zhpi2 04:22 Drug: DuoNeb (albuterol 2.5 mg, ipratropium 0.5 mg) (3:1) (2.5 mg - 0.5 mg) 3 ml Route: as6 Nebulizer; 04:51 Follow up: Response: No adverse reaction as6 04:37 Drug: Lactated Ringers Solution 1000 ml Route: IV; Rate: 1 bolus; Site: right forearm; as6 06:02 Follow up: Response: No adverse reaction; IV Status: Completed infusion; IV Intake: as6 1000ml 05:21 Drug: Lactated Ringers Solution 1000 ml Route: IV; Rate: 1 bolus; Site: right forearm; as6 06:02 Follow up: Response: No adverse reaction; IV Status: Completed infusion; IV Intake: as6 1000ml 05:40 Drug: Magnesium Sulfate 1 grams Route: IVPB; Infused Over: 1 hrs; Site: right forearm; as6 06:58 Follow up: Response: No adverse reaction; IV Status: Completed infusion; IV Intake: as6 100ml Intake: 04:51 IV: 50ml; Total: 50ml. as6 06:02 IV: 1000ml; Total: 1050ml. as6 06:02 IV: 1000ml; Total: 2050ml. as6 06:58 IV: 100ml; Total: 2150ml. as6 Outcome: 04:28 Decision to Hospitalize by Provider. ms3 07:26 Admitted to ER Hold. Please see [facility] for further documentation. vg1 07:26 Condition: stable 07:26 Instructed on the need for admit. 08:46 Patient left the ED. vg1 Signatures: Dispatcher [employer] EDMS Koki Carrillo, RN RN lp1 Yu Cary RN RN lg3 Paty Winchester RN RN vg1 Edward Brock DO DO ms3 Carlos Canchola, RN RN as6 Julianna Wilkerson Corrections: (The following items were deleted from the chart) 04:28 03:59 BASIC METABOLIC PANEL+[id number].LAB.BRZ drawn and sent. 3 EDOR 08:27 08:26 Reassessment: Report given to Aspen RUIZ in ICU, pt going to bed 1 vg1 vg1
--- NOTE | 2021-09-08 04:29 | EDPHYS ---
Physician Documentation [facility] Name: Remedios Elizalde Age: 56 yrs Sex: Female : 1965 Arrival Date: 09/08/2021 Time: 03:22 Bed 3 Private MD: ED Physician Edward Brock HPI: 09/08 04:55 This 56 yrs old Female presents to ER via Wheelchair with complaints of ms3 Shortness Of Breath. 04:55 The patient has shortness of breath that woke him/her from sleep. Onset: The ms3 symptoms/episode began/occurred this morning. Duration: The symptoms are continuous. The patient's shortness of breath has no apparent modifying factors. Associated signs and symptoms: Pertinent positives: fever. Severity of symptoms: At their worst the symptoms were severe in the emergency department the symptoms are unchanged. 56-year-old female with past medical history of diabetes presents for shortness of breath that began tonight. Patient significant other states while driving to the emergency department patient became altered and had increased weakness. Patient denies pain. Patient did have nausea and vomiting in route to the emergency department.. Historical: - Allergies: 04:23 No Known Allergies; as6 - PMHx: 04:23 Diabetes mellitus; as6 - PSHx: 04:48 Cholecystectomy; Ligation of fallopian tube; as6 - Immunization history:: Adult Immunizations unknown. - Social history:: Smoking status: unknown. ROS: 04:55 Eyes: Negative for injury, pain, redness, and discharge, Neck: Negative for injury, ms3 pain, and swelling, Cardiovascular: Negative for chest pain, and palpitations. 04:55 Abdomen/GI: Negative for abdominal pain, nausea, vomiting, diarrhea, and constipation, MS/Extremity: Negative for injury and deformity, Skin: Negative for injury, rash, and discoloration, Neuro: Negative for headache, weakness, numbness, tingling. 04:55 Constitutional: Positive for chills, fever. 04:55 Respiratory: Positive for cough, shortness of breath. 04:55 All other systems are negative. Exam: 03:24 ECG was reviewed by the Attending Physician. ms3 04:55 Constitutional: This is a well developed, well nourished patient who is awake, alert, ms3 and in no acute distress. Head/Face: Normocephalic, atraumatic. Eyes: Pupils equal round and reactive to light, extra-ocular motions intact. Lids and lashes normal. Conjunctiva and sclera are non-icteric and not injected. Periorbital areas with no swelling, redness, or edema. Neck: Trachea midline, no cervical lymphadenopathy. Supple, full range of motion without nuchal rigidity, or vertebral point tenderness. No Meningismus. Chest/axilla: Normal chest wall appearance and motion. Nontender with no deformity. Cardiovascular: Regular rate and rhythm with a normal S1 and S2. No gallops, murmurs, or rubs. Normal PMI, no JVD. No pulse deficits. Respiratory: Lungs have equal breath sounds bilaterally, clear to auscultation and percussion. No rales, rhonchi or wheezes noted. No increased work of breathing, no retractions or nasal flaring. Abdomen/GI: Soft, non-tender, with normal bowel sounds. No distension or tympany. No guarding or rebound. No evidence of tenderness throughout. 04:55 Skin: Appearance: Color: pink, Temperature: normal temperature, Moisture: diaphoretic. 05:43 ECG was reviewed by the Attending Physician. ms3 Vital Signs: 03:30 BP 132 / 70; Pulse 123; Resp 28 S; Temp 105.4(C); Pulse Ox 96% on R/A; Weight 104.33 kg;as6 04:22 BP 101 / 56; Pulse 95; Resp 26 S; Temp 105.2(C); Pulse Ox 100% on 7% Nebulizer Mask; as6 04:49 BP 110 / 61; Pulse 103; Resp 20 S; Temp 104.2(C); Pulse Ox 100% on R/A; as6 05:15 BP 105 / 58; Pulse 99; Resp 18 S; Temp 103.3(C); Pulse Ox 98% on R/A; as6 05:45 BP 99 / 58; Pulse 95; Resp 21 S; Temp 102.8(C); Pulse Ox 98% on R/A; as6 06:30 BP 98 / 59; Pulse 92; Resp 20 S; Temp 101.9(C); Pulse Ox 95% on R/A; as6 06:57 BP 105 / 65; Pulse 91; Resp 18 S; Temp 101.7(C); Pulse Ox 96% on R/A; as6 MDM: 03:25 Patient medically screened. ms3 04:55 Differential diagnosis: pneumonia, pulmonary edema, Pulmonary Embolism. Data reviewed: ms3 vital signs, nurses notes, lab test result(s), radiologic studies. Data interpreted: desk monitor: rate is 112 beats/min, rhythm is sinus tachycardia, with no ectopy, Interpretation: tachycardia. 05:02 ED course: Discussed case with RYLEE Roque, and she accepts patient on behalf of ms3 Dr Ordoñez. All questions answered. Patient improved since arrival to the ED.. 05:18 ED course: Patient meets septic shock criteria at this time. A. UTI B. Fever, HR>90 C. ms3 Platelets <100,000. Shock criteria Lactate > 4. Blood cultures collected. Rocephin given. Will give IVF for ideal bodyweight of 47.32. Patient has already had 1 L LR administered. . ED course: Sepsis re-evaluation complete.. 09/08 03:24 Order name: CBC with Diff; Complete Time: 05:41 ms3 09/08 03:24 Order name: Magnesium; Complete Time: 05:17 ms3 09/08 03:24 Order name: NT PRO-BNP; Complete Time: 05:17 ms3 09/08 03:24 Order name: Troponin HS; Complete Time: 05:17 ms3 09/08 03:32 Order name: Urinalysis; Complete Time: 04:23 ms3 09/08 03:33 Order name: Blood Culture Adult (2) 3 09/08 03:33 Order name: CMP; Complete Time: 05:19 ms3 09/08 03:33 Order name: Lactate; Complete Time: 05:19 ms3 09/08 03:33 Order name: Protime (+inr); Complete Time: 05:05 ms3 09/08 03:33 Order name: Ptt, Activated; Complete Time: 05:05 ms3 09/08 03:33 Order name: ABG; Complete Time: 04:12 ms3 09/08 03:40 Order name: Glucose, Ancillary Testing; Complete Time: 04:12 EDMS 09/08 03:50 Order name: Urine Dipstick-Ancillary; Complete Time: 04:12 EDMS 09/08 03:24 Order name: XRAY Chest (1 view) ms3 09/08 03:24 Order name: CT Head Brain wo Cont ms3 09/08 03:27 Order name: CT Abd/Pelvis - IV Contrast Only ms3 09/08 03:31 Order name: CT Chest For PE Angio ms3 09/08 04:05 Order name: AMMONIA; Complete Time: 04:48 lg3 09/08 04:09 Order name: Urine Microscopic Only; Complete Time: 04:23 EDMS 09/08 04:23 Order name: Urine Culture EDMS 09/08 04:28 Order name: CREATININE WHOLE BLOOD; Complete Time: 04:32 EDMS 09/08 04:40 Order name: COVID-19/FLU A+B (Document "Date of Onset" if Symptomatic); Complete Time: lg3 06:27 09/08 04:46 Order name: CBC Smear Scan; Complete Time: 05:41 EDMS 09/08 07:48 Order name: Lactate Sepsis 2 HR Follow-up EDMS 09/08 08:07 Order name: Creatine Phosphokinase EDMS 09/08 08:07 Order name: CKMB Creatine Kinase MB EDMS 09/08 08:07 Order name: T4 Free EDMS 09/08 08:07 Order name: Thyroid Stimulating Hormone EDMS 09/08 03:24 Order name: EKG; Complete Time: 03:24 ms3 09/08 03:24 Order name: Cardiac monitoring; Complete Time: 03:40 ms3 09/08 03:24 Order name: EKG - Nurse/Tech; Complete Time: 03:35 ms3 09/08 03:24 Order name: IV Saline Lock; Complete Time: 03:40 ms3 09/08 03:24 Order name: Labs collected and sent; Complete Time: 03:59 ms3 09/08 03:24 Order name: O2 Per Protocol; Complete Time: 03:40 ms3 09/08 03:24 Order name: O2 Sat Monitoring; Complete Time: 03:40 ms3 09/08 03:32 Order name: Urine Dipstick-Ancillary (obtain specimen); Complete Time: 03:50 ms3 09/08 04:13 Order name: Labs - recollect needed; Complete Time: 04:20 lp1 09/08 05:24 Order name: EKG - Nurse/Tech; Complete Time: 05:41 lp1 EC:24 Rate is 109 beats/min. Rhythm is regular. QRS [place] is Normal. Clinical impression: NSR ms3 w/ Non-specific ST/T Changes. Interpreted by me. Reviewed by me. 05:43 Rate is 94 beats/min. Rhythm is regular. QRS [place] is Normal. Clinical impression: ms3 Normal ECG. Interpreted by me. Reviewed by me. Administered Medications: 04:20 Drug: Tylenol 1000 mg Route: PO; lg3 04:20 Follow up: Response: No adverse reaction lg3 04:20 Drug: Rocephin (cefTRIAXone) 1 grams Route: IV; Rate: calculated rate; Site: right lg3 forearm; 04:51 Follow up: Response: No adverse reaction; IV Status: Completed infusion; IV Intake: 29msss0 04:22 Drug: DuoNeb (albuterol 2.5 mg, ipratropium 0.5 mg) (3:1) (2.5 mg - 0.5 mg) 3 ml Route: as6 Nebulizer; 04:51 Follow up: Response: No adverse reaction as6 04:37 Drug: Lactated Ringers Solution 1000 ml Route: IV; Rate: 1 bolus; Site: right forearm; as6 06:02 Follow up: Response: No adverse reaction; IV Status: Completed infusion; IV Intake: as6 1000ml 05:21 Drug: Lactated Ringers Solution 1000 ml Route: IV; Rate: 1 bolus; Site: right forearm; as6 06:02 Follow up: Response: No adverse reaction; IV Status: Completed infusion; IV Intake: as6 1000ml 05:40 Drug: Magnesium Sulfate 1 grams Route: IVPB; Infused Over: 1 hrs; Site: right forearm; as6 06:58 Follow up: Response: No adverse reaction; IV Status: Completed infusion; IV Intake: as6 100ml Disposition: 05:23 Critical Care:. ms3 Disposition Summary: 09/08/21 04:28 Hospitalization Ordered Hospitalization Status: Inpatient Admission ms3 Provider: Jonathan Ordoñez ms3 Condition: Stable ms3 Problem: new ms3 Symptoms: are unchanged ms3 Bed/Room Type: Standard ms3 Location: Intensive Care Unit(09/08/21 08:04) Room Assignment: 1-(09/08/21 08:04) ss Diagnosis - Pyelonephritis acute ms3 - Fever, unspecified ms3 - Vomiting ms3 - Severe sepsis with septic shock ms3 - Elevated troponin ms3 Forms: - Medication Reconciliation Form ms3 - SBAR form ms3 Critical care time excluding procedures: 05:23 Critical care time: Bedside Care: 50 minutes, Consultation: 10 minutes, Family ms3 Intervention: 5 minutes. Total time: 65 minutes Signatures: Dispatcher [employer] EDMS Toya Mosher RN RN mw Nika Gamez RN RN ss Koki Carrillo, RN RN lp1 Yu Cary RN RN lg3 Edward Brock DO DO ms3 Carlos Canchola RN RN as6 Namita Dotson PA PA sb3 Corrections: (The following items were deleted from the chart) 04:28 03:24 BASIC METABOLIC PANEL+C.LAB.BRZ ordered. EDMS EDMS 05:17 04:28 Telemetry/MedSurg (Inpatient) ms3 mw 05:17 04:28 ms3 mw 08:04 05:17 BR ER HOLD [facility] 08:04 05:17 ERHOLD- [facility]
[2021-09-08 04:36] LABS: Absolute Lymphocytes (CBC) 0.5 K/uL (0.7-4.9); Lymphocytes % 9.9 % (15.3-44.8); MPV 9.8 fL (7.6-11.3); RBC Red Blood Cell Count 6.31 M/uL (3.86-4.86)
[2021-09-08] MEDS ORDERED: Ringers Lactate 1,000 ML IV ONE ×2 (04:38→05:23)
[2021-09-08 04:48] LABS: Protime INR 1.3
[2021-09-08 04:50] LABS: Magnesium 1.7 mg/dL (1.8-2.4)
[2021-09-08 05:06] LABS: Albumin 2.3 g/dL (3.4-5.0); Bilirubin Total 0.9 mg/dL (0.2-1.0); Potassium 3.1 mmol/L (3.5-5.1); Protein, Total 6.4 g/dL (6.4-8.2)
[2021-09-08 05:14] LABS: Troponin High Sensitivity 291.3 pg/mL (<58.9)
--- NOTE | 2021-09-08 05:14 | P.HP ---
Certification for Inpatient Patient admitted to: Inpatient With expected LOS: <2 Midnights Patient will require the following post-hospital care: None Practitioner: I am a practitioner with admitting privileges, knowledge of patient current condition, hospital course, and medical plan of care. Services: Services provided to patient in accordance with Admission requirements found in Title 42 Section 412.3 of the Code of Federal Regulations Patient History Date of Service: 09/08/21 Reason for admission: Pyelonephritis, Thombocytopenia History of Present Illness: Patient is a 56-year-old female with past medical history of type 2 diabetes [id number] who presented to the ED altered, diaphoretic and vomiting on herself. her boyfriend brought her in and stated she woke up very short of breath. Patient was in the ED a day and a half ago with complaints of fever, dizziness, and vomiting. She was diagnosed with a viral illness and discharged. Work-up in the ED revealed UTI, fever of 105.4F, and CT showed pyelonephritis. ABG revealed a pH of 7.5, PCO2 23.6, bicarb 18.4. Labs remarkable for platelet count 41, sodium 132, potassium 3.1, glucose 307, lactic acid 5.5, mag 1.7, AST/ALT/alk phos all elevated, troponin HS 291, proBNP 211. EKG and head CT negative. Patient received a liter of LR, DuoNebs, and ceftriaxone in the ED. Patient is no longer altered or in any distress upon my assessment. She does not really remember what happened tonight but she reports feeling much better. Further work-up is definitely warranted due to significant change in labs within a day and a half. White blood cell count and platelet count are both half of what they were and ALT, AST, alk phos all elevated. Will admit patient for further evaluation and treatment. Home medications list reviewed: Yes - Past Medical/Surgical History Diabetic: Yes -: Type 2 Diabetes, Non-insulin Dependent -: Cholecystectomy Psychosocial/ Personal History: Patient lives at home with her boyfriend. - Family History Brother -: Diabetes - Social History Smoking Status: Current every day smoker Alcohol use: Yes CD- Drugs: No Caffeine use: Yes Place of Residence: Home Review of Systems General: Fever, Chills, Sweats, Weakness, As per HPI Respiratory: Shortness of Breath Gastrointestinal: Nausea, Vomiting Physical Examination - Physical Exam General: Alert, In no apparent distress, Oriented x3 HEENT: Atraumatic, PERRLA, Mucous membr. moist/pink, EOMI, Sclerae nonicteric Neck: Supple, 2+ carotid pulse no bruit, No LAD, Without JVD or thyroid abnormality Respiratory: Clear to auscultation bilaterally, Normal air movement Cardiovascular: Regular rate/rhythm, Normal S1 S2 Gastrointestinal: Normal bowel sounds, No tenderness Musculoskeletal: No tenderness Integumentary: No rashes Neurological: Normal speech, Normal strength at 5/5 x4 extr, Normal tone, Normal affect Urinary: Arthur catheter - Studies Laboratory Data (last 24 hrs) 09/08/21 04:18: PT 14.4 H, INR 1.30, APTT 25.4 09/08/21 04:18: WBC 4.6 D, Hgb 12.0, Hct 38.0, Plt Count 41 L* D 09/08/21 04:18: Sodium Cancelled, Potassium Cancelled, BUN Cancelled, Creatinine Cancelled, Glucose Cancelled Assessment and Plan - Problems (Diagnosis) (1) Pyelonephritis Current Visit: Yes Status: Acute (2) Thrombocytopenia Current Visit: Yes Status: Acute (3) Fever Current Visit: Yes Status: Acute Qualifiers: Fever type: due to other condition Qualified Code(s): R50.81 - Fever pr esenting with conditions classified elsewhere (4) Elevated liver enzymes Current Visit: Yes Status: Acute (5) Lactic acidosis Current Visit: Yes Status: Acute (6) Elevated troponin Current Visit: Yes Status: Acute (7) Shortness of breath Current Visit: Yes Status: Acute (8) Type 2 diabetes mellitus Current Visit: Yes Status: Acute Qualifiers: Diabetes mellitus shelter insulin use: without terminal carman use Diabetes mellitus complication status: without complication Qualified Code(s): E11.9 - Type 2 diabetes mellitus without complications - Plan -Patient's urine positive for UTI. CT showed pyelonephritis. Patient is febrile-Initially 105 now down to 103. We will continue Tylenol and ice packs. She received a dose of Rocephin in the ED. We will continue pending urine culture. -Lactic acid was elevated at 5.5. Sepsis protocol was initially called on her. We will continue IV fluids and monitor lactic. Vital signs stable at this time. Head CT negative. Telemetry. -Patient was not complaining of chest pain however her troponin HS came back elevated at 291. EKG negative for ST changes. Repeat troponin every 6x2 and check CPK and CK-MB. Aspirin and atorvastatin ordered. cardiology consulted. proBNP slightly elevated at 211. Chest x-ray negative -Patient initially came in for shortness of breath. We will continue breathing treatments as needed -Zofran as needed for nausea -ACHS Accu-Cheks with mild sliding scale insulin -Platelets were 41 on admission, however were 90 a day and a half ago. White blood cell count also dropped to 4.6 from 9. Will trend -Liver enzymes also elevated, AST 184, ALT 122, alk phos 2 8, will trend -SCDs for DVT prophylaxis given thrombocytopenia Discharge Plan: Home Plan to discharge in: 48 Hours - Advance Directives Does patient have a Living Will: No Does patient have a Durable POA for Healthcare: No - Code Status/Comfort Care Code Status Assessed: Yes (Full) Critical Care: No Time Spent Managing Pts Care (In Minutes): 70
[2021-09-08 05:23] LABS: Anisocytosis 1+; Blood Morphology Comment NOTED (NOT SEEN); Ovalocytes 1+; Platelet Estimate DECR; Platelets, Giant MODERATE; White Blood Cell Scan OK (OK)
[2021-09-08] MEDS ORDERED: MAGNESIUM SULFATE 1 gm IVPB 1 GM/100 ML BAG IV ONE (05:35)
[2021-09-08 06:13] LABS: SARS-COV-2 RT PCR NEGATIVE (NEGATIVE)
[2021-09-08] MEDS: NA CHLORIDE 0.9% 1,000 ML IV SCH ×2 (07:29→20:09)
[2021-09-08] MEDS ORDERED: ASPIRIN 81 MG CHEWABLE TABLET PO ONE (07:29)
[2021-09-08] MEDS ORDERED: ALBUTEROL 2.5 MG/3 ML NEB SOL NEB PRN (07:29)
[2021-09-08] MEDS ORDERED: IPRATROPIUM BROM 0.5MG/2.5ML NEB PRN (07:29)
[2021-09-08] MEDS ORDERED: ZOLPIDEM TARTRATE 5 MG TABLET PO PRN (07:29)
[2021-09-08 08:06] LABS: CKMB Creatine Kinase MB < 1.0 ng/mL (1.0-3.6); Creatine Phosphokinase 47 U/L (26-192); Thyroid Stimulating Hormone < 0.005 uIU/mL (0.360-3.740)
[2021-09-08] MEDS ORDERED: NA CHLORIDE 0.9% 1,000 ML ONE (08:08)
[2021-09-08] MEDS ORDERED: ASPIRIN 81 MG CHEWABLE TABLET ONE (08:08)
--- NOTE | 2021-09-08 08:56 | CON ---
Date of Consultation: 09/08/[address] Ordoñez on 09/08/2021. I saw the patient on 09/08/2021. Reason For Consultation: Elevated troponin. History Of Present Illness: Ms. Elizalde is 56 with no previous cardiac history, who is known to us. S he does have a history of diabetes and dyslipidemia. Came in with pyelonephritis, sepsis, thrombocyt openia, fever and vomiting and was found to have elevated troponin. There was report from the family that she had been short of breath as well. When the patient first came into the hospital, she had a ltered mental status and confusion, was not able to give a good history. History was given by berry velazquez. Past Medical History: As stated above. Family History: Positive for diabetes. Allergies: NONE. Review of Systems: Negative. Social History: Negative. Medications: Listed by primary care admitting physician. Physical Examination: Vital Signs: Stable. Afebrile. Initial temperature was almost 105. Sinus rhythm. HEENT: Negative. Neck: Supple with no bruit. Chest: Revealed clear sounds. Cardiac: Normal. Abdomen: Benign. Extremities: Revealed no clubbing, cyanosis, or edema. Diagnostic Data: Her EKG is negative. Chest x-ray is negative. Platelet count is 41,000. Urinalys is showed UTI. Lactic acid was elevated consistent with sepsis. Troponin is 291. Glucose is 307, A ST 184, ALT 122. Impression And Plan: 1.Elevated troponin secondary to sepsis. Echocardiogram is pending. 2.Shortness of breath with negative chest x-ray. This may be secondary to sepsis as well. 3.Thrombocytopenia, elevated liver function, also secondary to her urinary tract infection and pyelo nephritis. 4.Her diabetes is poorly controlled. She is presently on inhalers, insulin, antibiotics, and Lipitor. I agree with the present regimen. We will see what her echo shows. NB/MODL Voice ID: [id number] Report ID: [id number]
[2021-09-08] MEDS ORDERED: CEFTRIAXONE 1,000 MG in NA CHLORIDE 0.9% 50 ML IVPB SCH (09:00)
[2021-09-08] MEDS: INSULIN -REGULAR HUMAN 50 UNIT/0.5 ML ML SQ SCH ×4 (09:21→20:09)
[2021-09-08] MEDS ORDERED: POTASSIUM CL SA 10 MEQ TAB PO ONE (09:29)
[2021-09-08 09:59] VITALS: BMI 35.7
--- NOTE | 2021-09-08 12:18 | P.PN ---
Date of Service: 09/08/21 Patient seen and examined. She states she feels better. She is awake and alert, blood pressure stable. Diagnosis: Sepsis. UTI Elevated troponin Thrombocytopenia Hyperthyroid state. Plan: Aggressive antibiotic therapy. We will add vancomycin to Rocephin. Follow urine culture and blood cultures. IV hydration Cardiology input appreciated. Elevated troponin secondary to sepsis. Patient is asymptomatic, no chest pain. Patient will need further outpatient evaluation for hyperthyroidism. Monitor CBC to follow thrombocytopenia. SCD for DVT prophylaxis
[2021-09-08] MEDS ORDERED: VANCOMYCIN 1.75 GM in NA CHLORIDE 0.9% 500 ML IVPB SCH (15:00)
[2021-09-08] MEDS: ONDANSETRON 4 MG/2 ML VIAL IV PRN ×2 (15:51→20:25)
[2021-09-08 16:49] LABS: Potassium 3.8 mmol/L (3.5-5.1)
[2021-09-08 17:10] LABS: Troponin High Sensitivity 620.8 pg/mL (<58.9)
[2021-09-08] MEDS: ACETAMINOPHEN 500 MG TAB PO PRN (18:35)
[2021-09-08] MEDS: ATORVASTATIN 40 MG TAB PO SCH (20:09)
[2021-09-08] MEDS: CALCIUM CARBONATE CHEW 500MG TAB PO PRN (20:17)
[2021-09-09] MEDS: ACETAMINOPHEN 500 MG TAB PO PRN ×2 (00:18→15:59)
[2021-09-09] MEDS ORDERED: CEFTRIAXONE 1,000 MG in NA CHLORIDE 0.9% 50 ML IVPB SCH (05:00)
[2021-09-09] MEDS: NA CHLORIDE 0.9% 1,000 ML IV SCH ×2 (05:06→07:12)
[2021-09-09 05:08] LABS: Absolute Lymphocytes (CBC) 1.6 K/uL (0.7-4.9); Hematocrit 32.3 % (36.0-45.0); Lymphocytes % 17.5 % (15.3-44.8); MPV 10.6 fL (7.6-11.3); RBC Red Blood Cell Count 5.36 M/uL (3.86-4.86)
[2021-09-09 05:27] LABS: ALT/SGPT 79 U/L (12-78); AST/SGOT 52 U/L (15-37); Alkaline Phosphatase 137 U/L (45-117); BUN Blood Urea Nitrogen 11 mg/dL (7-18); Bicarbonate 23 mmol/L (21-32); Bilirubin Total 0.6 mg/dL (0.2-1.0); Glucose Level 156 mg/dL (74-106); Potassium 3.4 mmol/L (3.5-5.1); Protein, Total 5.5 g/dL (6.4-8.2); Sodium Level 136 mmol/L (136-145)
[2021-09-09] MEDS: KCL 20 MEQ/100 mL IVPB 20 MEQ/100 ML BAG IV SCH ×2 (06:42→08:04)
[2021-09-09] MEDS: INSULIN -REGULAR HUMAN 50 UNIT/0.5 ML ML SQ SCH ×4 (07:30→20:08)
[2021-09-09] MEDS ORDERED: POTASSIUM PHOS IN 0.9 % NACL 15 MMOL/250 ML BAG IV ONE (08:03)
--- NOTE | 2021-09-09 09:39 | EKG ---
Test Date: 2021-09-08 Test Time: 05:43:35 Process Trainer: MEASUREMENT RESULTS: Intervals: Rate: 94 CT: 136 QRSD: 100 QT: 336 QTc: 420 [place]: P: 63 CT: 136 QRS: 66 T: 32 INTERPRETIVE STATEMENTS: Normal sinus rhythm Normal ECG Compared to ECG 09/08/2021 03:24:09 Sinus tachycardia no longer present Right-axis deviation no longer present ST (T wave) deviation no longer present Possible ischemia no longer present Electronically Signed On 09-09-21 09:35:45 CDT by Dhaval Muniz
--- NOTE | 2021-09-09 09:39 | EKG ---
Test Date: 2021-09-08 Test Time: 03:24:09 Spinner Frame: MEASUREMENT RESULTS: Intervals: Rate: 109 MS: 118 QRSD: 90 QT: 346 QTc: 465 [place]: P: 67 MS: 118 QRS: 102 T: -9 INTERPRETIVE STATEMENTS: Sinus tachycardia Rightward axis ST & T wave abnormality, consider inferior ischemia ST & T wave abnormality, consider anterolateral ischemia Abnormal ECG Compared to ECG 03/04/2007 17:41:39 Right-axis deviation now present ST (T wave) deviation now present Possible ischemia now present Sinus rhythm no longer present Electronically Signed On 09-09-21 09:35:48 CDT by Dhaval Muniz
--- NOTE | 2021-09-09 11:53 | P.CNS ---
Date of Consult: 09/09/21 Chief Complaint: Pyelonephritis, Thombocytopenia History of Present Illness: The patient is a 56-year-old female with a past medical history of diabetes who presented to the emergency department secondary to fevers, nausea/vomiting, rigors, and altered mental status. Patient states that her symptoms first started on . She came to the emergency department on Thursday and was diagnosed with a viral illness and discharged. However she states that her symptoms only continue to worsen, as such she represented to the ED. Patient states she does not remember coming to the ED. She was septic on admission with lactic acidosis, fever with a T-max of 105, altered mental status, tachycardia, and tachypenia. She also had hyperglycemia on admission with a venay-rb-ruoe glucose of 307. Additional work-up showed thrombocytopenia and elevated liver enzymes. Blood cultures growing gram-negative rods, urine culture also growing gram-negative rods. CT abdomen pelvis showed pyelonephritis. Patient was admitted for urosepsis. She was empirically started on Rocephin. She currently states she is feeling much better, denies nausea/vomiting/diarrhea. She is also complaining of some shortness of breath on admission, however states that that has since resolved. Allergies No Known Allergies Allergy (Verified 09/09/21 04:21) Home Medications: Buspirone HCl [Buspar] 15 mg PO BID 09/08/21 Fluticasone [Flonase 50MCG Nasal [place]*] 2 spray NS DAILY 09/08/21 Gabapentin 300 mg PO TID 09/08/21 Loratadine [Claritin] 10 mg PO DAILY PRN 09/08/21 Metformin HCl [Glucophage] 500 mg PO BIDWM 09/08/21 - Past Medical/Surgical History Diabetic: Yes -: Type 2 Diabetes, Non-insulin Dependent -: neuropathy -: asthma -: Cholecystectomy -: tubal ligation Psychosocial/ Personal History: Patient lives at home with her boyfriend. - Family History Brother Medical History: Diabetes - Social History Smoking Status: Unknown if ever smoked Alcohol use: Yes CD- Drugs: Yes Caffeine use: Yes Place of Residence: Home Review of Systems 10-point ROS is otherwise unremarkable Physical Examination Temp Pulse Resp BP Pulse Ox 97 F 75 19 127/81 99 09/09/21 04:00 09/09/21 04:00 09/09/21 00:00 09/09/21 04:00 09/09/21 04:00 General: Alert, In no apparent distress, Obese HEENT: Atraumatic, Scleral icterus Neck: Supple, JVD not distended Respiratory: Clear to auscultation bilaterally, Normal air movement Cardiovascular: Regular rate/rhythm, Normal S1 S2 Gastrointestinal: Normal bowel sounds, Soft and benign Musculoskeletal: No clubbing, No swelling, No contractures Integumentary: No rashes, No breakdown, No significant lesion Conclusions/Impression: Antibiotics: Rocephin: urrent Assessment/plan Urosepsis Blood and urine cultures growing GNR, awaiting speciation/susceptibility. Continue empiric Rocephin at this time -CT abdomen/pelvis showed pyelonephritis. Patient will need extended antibiotic course. Thrombocytopenia Likely related to sepsis via platelet consumption. Continue to monitor Elevated liver enzymes Likely related to sepsis, continue to monitor Diabetes Continue sliding scale insulin Medical management per primary team Plan of care discussed with Dr. Baer Thank you for consultation
--- NOTE | 2021-09-09 12:16 | P.PN ---
Subjective Date of Service: 09/09/21 Chief Complaint: Pyelonephritis, Thombocytopenia Patient reports feeling much better today. She stated her appetite improved, ate all her meals. She denies any dysuria or increased urinary frequency. No fever. Blood cultures grew gram-negative rods, urine culture gram-negative rods. Physical Examination - Vital Signs Temperature: 97 F Blood Pressure: 127/81 Pulse: 75 Respirations: 19 Pulse Ox (%): 99 Assessment And Plan - Plan Physical Exam General: Alert, In no apparent distress, Oriented x3 HEENT: Mucous membr. moist/pink, EOMI, Sclerae nonicteric Neck: Supple, 2+ carotid pulse no bruit, No LAD, Without JVD or thyroid abnormality Respiratory: Clear to auscultation bilaterally, Normal air movement Cardiovascular: Regular rate/rhythm, Normal S1 S2 Gastrointestinal: Normal bowel sounds, No tenderness Musculoskeletal: No tenderness Integumentary: No rashes Neurological: Normal speech, Normal strength at 5/5 x4 extr, Normal tone, Normal affect Urinary: Arthur catheter Diagnosis Acute pyelonephritis Gram-negative bacteremia Elevated troponin DM type II Plan Continue IV Rocephin. Vancomycin discontinued Infectious disease consulted. Repeat blood cultures. Patient seen by cardiology for elevated troponin. Troponin elevation deemed secondary to sepsis. Activity as tolerated Discontinue Arthur catheter. Noted elevated blood sugar. Insulin sliding scale for glucose management.
--- NOTE | 2021-09-09 14:20 | RAD REPORT ---
EXAM DESCRIPTION: CT - Chest For Pe Angio - 09/08/2021 6:55 am CLINICAL HISTORY: The patient is 56 years old and is Female; SOB TECHNIQUE: Axial computed tomographic angiography images of the chest with intravenous contrast. S agittal and coronal reformatted images were created and reviewed. This CT exam was performed using one or more of the following dose reduction techniques: automated exposure control, adjustment of t he mA and/or kV according to patient size, and/or use of iterative reconstruction technique. MIP re constructed images were created and reviewed. COMPARISON: No relevant prior studies available. FINDINGS: Pulmonary arteries: Evaluation for pulmonary thromboembolism is limited due to lack of a dequate IV contrast density in the pulmonary arteries. UZ=740 in the main pulmonary outflow tract. PE cannot be excluded. Aorta: No acute findings. No thoracic aortic aneurysm. Lungs: No pulmonary consolidation or groundglass opacities to suggest pneumonia. 8mm nodule along the left oblique fissure, likely intrapulmonary lymph node. Pleural space: No pleural effusion or pneumothorax. Heart: Unremarkable. No cardiomegaly. No significant pericardial effusion. No evidence of RV dysfunction. Bones/joints: Multilevel vertebral osteophytes. No acute fracture. No dislocation. Soft tissues: Unremarkable. Lymph nodes: See above. Upper abdomen: See CT abdomen pelvis report, study performed concurrently. IMPRESSION: 1. Evaluation for pulmonary thromboembolism is limited due to lack of adequate IV cont rast density in the pulmonary arteries. QZ=794 in the main pulmonary outflow tract. PE cannot be excl uded. 2. No pulmonary consolidation or groundglass opacities to suggest pneumonia. 3. 8mm nodule along the left oblique fissure, likely intrapulmonary lymph node. No routine follow -up imaging is recommended per Fleischner Society Guidelines. These guidelines do not apply to immunocompromised patients and patients with cancer. Follow up in pa tients with significant comorbidities as clinically warranted. For lung cancer screening, adhere to L alexa-RADS guidelines. Reference: Radiology. 2017; 284(1):228-43; Radiology. 2012; 265(2):611-6; Radiol ogy. 2010; 254(3):949-56. Electronically signed by: Ruby Ramey MD 09/08/2021 4:52 AM CDT Due to temporary technical issues with the PACS/Fluency reporting system, reports are being signed by the in house radiologist without review as a courtesy to ensure prompt reporting. The interpreting r adiologist is fully responsible for the content of the report.
--- NOTE | 2021-09-09 14:21 | RAD REPORT ---
EXAM DESCRIPTION: CT - Head Brain Wo Cont - 09/08/2021 6:55 am CLINICAL HISTORY: The patient is 56 years old and is Female; CONFUSED TECHNIQUE: Axial computed tomography images of the head/brain without intravenous contrast. Sagitt al and coronal reformatted images were created and reviewed. This CT exam was performed using one o r more of the following dose reduction techniques: automated exposure control, adjustment of the mA and/or kV according to patient size, and/or use of iterative reconstruction technique. COMPARISON: No relevant prior studies available. FINDINGS: Brain: Unremarkable. No hemorrhage. No significant white matter disease. No edema. Ventricles: Unremarkable. No ventriculomegaly. Bones/joints: Unremarkable. No acute fracture. Soft tissues: Unremarkable. Sinuses: Unremarkable as visualized. Mastoid air cells: Unremarkable as visualized. No mastoid effusion. IMPRESSION: No acute intracranial abnormality. Electronically signed by: Dave Stubbs MD 09/08/2021 5:12 AM CDT Due to temporary technical issues with the PACS/Fluency reporting system, reports are being signed by the in house radiologist without review as a courtesy to ensure prompt reporting. The interpreting r adiologist is fully responsible for the content of the report.
--- NOTE | 2021-09-09 14:22 | RAD REPORT ---
EXAM DESCRIPTION: CT - Abdomen Pelvis W Contrast - 09/08/2021 6:56 am CLINICAL HISTORY: The patient is 56 years old and is Female; Vomiting TECHNIQUE: Axial computed tomography images of the abdomen and pelvis with intravenous contrast. S agittal and coronal reformatted images were created and reviewed. This CT exam was performed using one or more of the following dose reduction techniques: automated exposure control, adjustment of t he mA and/or kV according to patient size, and/or use of iterative reconstruction technique. COMPARISON: No relevant prior studies available. FINDINGS: Lung bases: Unremarkable. No mass. No consolidation. ABDOMEN: Liver: Fatty liver. Gallbladder and bile ducts: Cholecystectomy without biliary dilatation. Pancreas: No findings to suggest acute pancreatitis. No mass visualized. No ductal dilation. Spleen: Unremarkable. No splenomegaly. Adrenals: 2.4 cm fat-containing left adrenal lesion with focal calcification, consistent with ad renal myelolipoma. No follow-up imaging recommended. Right adrenal gland is unremarkable. Kidneys and ureters: Unremarkable. No solid mass. No hydronephrosis. Stomach and bowel: Colonic diverticulosis. No obstruction. No mucosal thickening. PELVIS: Appendix: The visualized appendix is normal. No pericecal inflammation to suggest acute appendic itis. Bladder: Arthur catheter in the bladder. Reproductive: Unremarkable as visualized. ABDOMEN and PELVIS: Intraperitoneal space: Unremarkable. No free air. No significant fluid collection. Bones/joints: Old T12 compression fracture. Mild scoliosis. No dislocation. Soft tissues: Unremarkable. Vasculature: Unremarkable. No abdominal aortic aneurysm. Lymph nodes: No pathologically enlarged lymph nodes. IMPRESSION: 1. No acute obstructive or inflammatory process identified. Normal appendix. 2. Fatty liver. 3. Colonic diverticulosis. 4. Additional non-emergent findings as above. Electronically signed by: Ruby Ramey MD 09/08/2021 4:48 AM CDT Due to temporary technical issues with the PACS/Fluency reporting system, reports are being signed by the in house radiologist without review as a courtesy to ensure prompt reporting. The interpreting r adiologist is fully responsible for the content of the report.
--- NOTE | 2021-09-09 14:24 | RAD REPORT ---
EXAM DESCRIPTION: RAD - Chest Single View - 09/08/2021 3:54 am CLINICAL HISTORY: The patient is 56 years old and is Female; SOB TECHNIQUE: Frontal view of the chest. COMPARISON: No relevant prior studies available. FINDINGS: Lungs: Mildly prominent interstitial and vascular markings. No consolidation. Pleural space: Unremarkable. No pneumothorax. Heart: Unremarkable. Mediastinum: Unremarkable. Bones/joints: Unremarkable. IMPRESSION: Mildly prominent interstitial and vascular markings. No consolidation. Electronically signed by: Dave Stubbs MD 09/08/2021 4:08 AM CDT Due to temporary technical issues with the PACS/Fluency reporting system, reports are being signed by the in house radiologist without review as a courtesy to ensure prompt reporting. The interpreting r adiologist is fully responsible for the content of the report.
--- NOTE | 2021-09-09 15:05 | PN ---
Date of Progress Note: 09/09/2021 Ms. Elizalde was admitted with elevated troponin. She has diabetes. She had shortness of breath, sepsi s. Her troponin has increased to 690. We thought that her elevated troponin is secondary to sepsis. Echocardiogram which was done showed normal wall motion without any effusion with a normal ejection fraction. Again, I think her elevated troponin is secondary to sepsis. No need for further cardiac workup. Continue antibiotics, aspirin, Lipitor, and insulin. She can go home whenever it is okay w [facility] admitting physician. RICH[place]D/ORA Voice ID: [id number] Report ID: [id number]
[2021-09-09] MEDS: CEFTRIAXONE 1,000 MG in NA CHLORIDE 0.9% 50 ML IVPB SCH (17:09)
[2021-09-09] MEDS: ATORVASTATIN 40 MG TAB PO SCH (20:45)
[2021-09-09] MEDS: BUSPIRONE HCL 15 MG TABLET PO SCH (20:45)
[2021-09-09] MEDS: GABAPENTIN 300 MG CAP PO SCH (20:45)
[2021-09-10] MEDS: CEFTRIAXONE 1,000 MG in NA CHLORIDE 0.9% 50 ML IVPB SCH (04:21)
[2021-09-10] MEDS: NA CHLORIDE 0.9% 1,000 ML IV SCH (04:24)
[2021-09-10 05:04] LABS: Absolute Lymphocytes (CBC) 1.3 K/uL (0.7-4.9); Lymphocytes % 15.6 % (15.3-44.8); MPV 10.1 fL (7.6-11.3); RBC Red Blood Cell Count 5.07 M/uL (3.86-4.86)
[2021-09-10 05:12] LABS: ALT/SGPT 70 U/L (12-78); AST/SGOT 41 U/L (15-37); Alkaline Phosphatase 164 U/L (45-117); BUN Blood Urea Nitrogen 7 mg/dL (7-18); Bicarbonate 24 mmol/L (21-32); Bilirubin Total 0.7 mg/dL (0.2-1.0); Glucose Level 159 mg/dL (74-106); Protein, Total 5.4 g/dL (6.4-8.2); Sodium Level 135 mmol/L (136-145)
--- NOTE | 2021-09-10 06:03 | P.PN ---
Date of Service: 09/10/21 Subjective: Improving, feeling much better, still some generalized weakness/fatigue No pain ROS: 10 point ROS as noted above, otherwise negative Physical exam GEN: Alert, oriented, NAD HEENT: Normal conjunctiva, sclera anicteric CV: Regular rate and rhythm, no edema Pulm: Nonlabored respirations on room air ABD: Soft, nontender, nondistended Neuro: Normal speech, normal affect Problem List Sepsis secondary to acute pyelonephritis, without severe sepsis/ septic shock Bacteremia - ESBL ecoli NSTEMI, secondary to sepsis DM type II ESBL ecolli in blood and urine. Sensitivities reviewed, Rocephin changed to Levaquin Infectious disease consulted. Recommend 10-day full treatment Patient seen by cardiology for elevated troponin. Troponin elevation deemed secondary to sepsis. Echocardiogram normal Activity as tolerated Avoiding without issue after Arthur removal Insulin sliding scale for glucose management. Overall improving Vitals T-max 100.0 yesterday/last night Code: full Dispo: home, anticipate tomorrow Time Spent Managing Pts Care (In Minutes): 35
--- NOTE | 2021-09-10 07:11 | ECHO ---
HEIGHT: 5 ft 4 in WEIGHT: 208 lb 4.8 oz DATE OF STUDY: 09/09/[address]: Namita Dotson 2-DIMENSIONAL: YES M.MODE: YES DOPPLER: YES COLOR FLOW: YES TDS: YES PORTABLE: NO DEFINITY: NO BUBBLE STUDY: NO DIAGNOSIS: ELEVATED TROPONIN CARDIAC HISTORY: CATHERIZATION: SURGERY: PROSTHETIC VALVE: PACEMAKER: MEASUREMENTS (cm) DIASTOLIC (NORMALS) SYSTOLIC (NORMALS) IVSd 1.1 (0.6-1.2) LA Diam 3.6 (1.9-4.0) LVEF 60% LVIDd 3.7 (3.5-5.7) LVIDs 2.6 (2.0-3.5) %FS 31% LVPWd 1.1 (0.6-1.2) Ao Diam 2.4 (2.0-3.7) 2 DIMENSIONAL ASSESSMENT: RIGHT ATRIUM: NORMAL LEFT ATRIUM: NORMAL RIGHT VENTRICLE: NORMAL LEFT VENTRICLE: NORMAL TRICUSPID VALVE: NORMAL MITRAL VALVE: NORMAL PULMONIC VALVE: NORMAL AORTIC VALVE: NORMAL PERICARDIAL EFFUSION: NONE AORTIC ROOT: NORMAL LEFT VENTRICULAR WALL MOTION: NORMAL. DOPPLER/COLOR FLOW: NORMAL. COMMENTS: NORMAL 2D ECHO WITH DOPPLER. NO WALL MOTION ABNORMALITY. NO EFFUSION. TECHNOLOGIST: JILL SCOTT
[2021-09-10] MEDS: INSULIN -REGULAR HUMAN 50 UNIT/0.5 ML ML SQ SCH ×4 (07:30→20:20)
[2021-09-10 07:37] VITALS: O2SAT 98
[2021-09-10 07:52] LABS: Phosphorus 2.1 mg/dL (2.5-4.9)
[2021-09-10] MEDS: GABAPENTIN 300 MG CAP PO SCH ×3 (08:45→20:08)
[2021-09-10] MEDS: BUSPIRONE HCL 15 MG TABLET PO SCH ×2 (08:45→20:08)
[2021-09-10] MEDS: Levofloxacin 750mg IV 750 MG/150 ML BAG IV SCH (08:53)
[2021-09-10] MEDS ORDERED: SODIUM PHOSPHATE 20 MM in NA CHLORIDE 0.9% 250 ML IV SCH (09:00)
[2021-09-10] MEDS ORDERED: POTASSIUM PHOS IN 0.9 % NACL 15 MMOL/250 ML BAG IV ONE (09:00)
--- NOTE | 2021-09-10 11:39 | P.PN ---
Subjective Date of Service: 09/10/21 Chief Complaint: Pyelonephritis, Thombocytopenia Patient seen and examined at bedside, doing well with no acute complaints. Afebrile and hemodynamically stable. Review of Systems 10-point ROS is otherwise unremarkable Physical Examination - Vital Signs Temperature: 97.9 F Blood Pressure: 138/74 Pulse: 67 Respirations: 16 Pulse Ox (%): 98 - Studies Microbiology 09/08/21 03:47 Clean Catch Urine Mercer Count - Final >100,000 CFU/ML. 09/08/21 03:47 Clean Catch Urine - Final Escherichia Coli Esbl Microbiology Data (last 24 hrs): 09/08/21 03:47 Clean Catch Urine Mercer Count - Final >100,000 CFU/ML. 09/08/21 03:47 Clean Catch Urine - Final Escherichia Coli Esbl Assessment And Plan - Plan Physical Exam: General: Alert, In no apparent distress, Obese HEENT: Atraumatic, Scleral icterus Neck: Supple, JVD not distended Respiratory: Clear to auscultation bilaterally, Normal air movement Cardiovascular: Regular rate/rhythm, Normal S1 S2 Gastrointestinal: Normal bowel sounds, Soft and benign Musculoskeletal: No clubbing, No swelling, No contractures Integumentary: No rashes, No breakdown, No significant lesion Conclusions/Impression: Antibiotics: levaquin: 09/10-current Rocephin: Assessment/plan Uncomplicated gram-negative bacteremia Blood and urine cultures grew ESBL producing E. coli. Antibiotic switched from IV Rocephin to IV Levaquin based off susceptibility testing. Recommend treating for total of 10 days with oral Levaquin. Pyelonephritis Urine culture growing ESBL E. coli. Continue oral Levaquin. Thrombocytopenia Likely related to sepsis via platelet consumption. Continue to monitor Elevated liver enzymes Likely related to sepsis, continue to monitor Diabetes Continue sliding scale insulin Medical management per primary team Plan of care discussed with Dr. Baer Thank you for consultation
[2021-09-10] MEDS: CALCIUM CARBONATE CHEW 500MG TAB PO PRN (16:33)
[2021-09-10] MEDS: ATORVASTATIN 40 MG TAB PO SCH (20:08)
[2021-09-11 05:05] LABS: Absolute Lymphocytes (CBC) 2.1 K/uL (0.7-4.9); Hematocrit 31.8 % (36.0-45.0); Lymphocytes % 27.1 % (15.3-44.8); MPV 9.8 fL (7.6-11.3); RBC Red Blood Cell Count 5.34 M/uL (3.86-4.86)
[2021-09-11 05:19] LABS: ALT/SGPT 63 U/L (12-78); AST/SGOT 30 U/L (15-37); Albumin 2.1 g/dL (3.4-5.0); Alkaline Phosphatase 185 U/L (45-117); BUN Blood Urea Nitrogen 7 mg/dL (7-18); Bicarbonate 27 mmol/L (21-32); Bilirubin Total 0.5 mg/dL (0.2-1.0); Glucose Level 164 mg/dL (74-106); Magnesium 2.2 mg/dL (1.8-2.4); Protein, Total 5.8 g/dL (6.4-8.2); Sodium Level 136 mmol/L (136-145)
--- NOTE | 2021-09-11 06:08 | P.DS ---
Admission Date: 09/08/21 Discharge Date: 09/11/21 Disposition: ROUTINE DISCHARGE Discharge Condition: GOOD Reason for Admission: Pyelonephritis, Thombocytopenia Consultations: Cardiology - Dr. Muniz Infectious Disease Procedures: Problem List Severe Sepsis secondary to acute pyelonephritis, without septic shock Bacteremia - ESBL ecoli NSTEMI, secondary to sepsis DM type II Brief History of Present Illness: 56yo F, PMH: NIDDM2, presented to ED altered, diaphoretic, and vomiting on herself. Associated with fever and dizziness. Found to have severe sepsis secondary to pyelonephritis. Hospital Course: Patient was treated with IV antibiotics for pyelonephritis. Urine culture and blood culture grew ESBL E. coli. Patient was switched to IV Levaquin from Rocephin. She continued had improvement of her symptoms and remained afebrile. She is stable for discharge. ID recommended 10days of Levaquin. Her elevated troponin on admission was evaluated further by cardiology. Trended down. Echocardiogram was normal. Cardiology felt this was secondary to sepsis and not a cardiac event. No further work-up needed. She had mild elevation of her liver enzymes and thrombocytopenia, which improved with treatment. [place] to be secondary to sepsis as well. Recommend follow-up with PCP within 1 week. Recommend repeating blood work (CBC/CMP) in a few weeks after patient fully recovers from this infection. Vital Signs/Physical Exam: Temp Pulse Resp BP Pulse Ox 97.3 F 55 18 144/82 H 97 09/11/21 04:00 09/11/21 04:00 09/11/21 04:00 09/11/21 04:00 09/11/21 04:00 Physical exam GEN: Alert, oriented, NAD HEENT: Normal conjunctiva, sclera anicteric CV: Regular rate and rhythm, no edema Pulm: Nonlabored respirations on room air ABD: Soft, nontender, nondistended Neuro: Normal speech, normal affect Laboratory Data at Discharge: WBC 7.7 K/uL (4.3-10.9) 09/11/21 04:39 Hgb 10.2 g/dL (12.0-15.0) L 09/11/21 04:39 Hct 31.8 % (36.0-45.0) L 09/11/21 04:39 Plt Count 102 K/uL (152-406) L D 09/11/21 04:39 PT 14.4 SECONDS (9.5-12.5) H 09/08/21 04:18 INR 1.30 09/08/21 04:18 APTT 25.4 SECONDS (24.3-36.9) 09/08/21 04:18 Sodium 136 mmol/L (136-145) 09/11/21 04:33 Potassium 4.0 mmol/L (3.5-5.1) 09/11/21 04:33 BUN 7 mg/dL (7-18) 09/11/21 04:33 Creatinine 0.50 mg/dL (0.55-1.3) L 09/11/21 04:33 Glucose 164 mg/dL (74-106) H 09/11/21 04:33 Phosphorus 3.0 mg/dL (2.5-4.9) 09/11/21 04:33 Magnesium 2.2 mg/dL (1.8-2.4) 09/11/21 04:33 Total Bilirubin 0.5 mg/dL (0.2-1.0) 09/11/21 04:33 AST 30 U/L (15-37) 09/11/21 04:33 ALT 63 U/L (12-78) 09/11/21 04:33 Alkaline Phosphatase 185 U/L (45-117) H 09/11/21 04:33 Home Medications: Buspirone HCl [Buspar] 15 mg PO BID 09/08/21 Fluticasone [Flonase 50MCG Nasal [place]*] 2 spray NS DAILY 09/08/21 Gabapentin 300 mg PO TID 09/08/21 Loratadine [Claritin*] 10 mg PO DAILY PRN 09/08/21 Metformin HCl [Glucophage*] 500 mg PO BIDWM 09/08/21 levoFLOXacin [Levaquin] 750 mg PO DAILY 10 Days #10 tab 09/11/21 New Medications: levoFLOXacin [Levaquin] 750 mg PO DAILY 10 Days #10 tab Diet: AHA Activity: Ad toni Followup: Unknown,U [Primary Care Provider] - Time spent managing pt's care (in minutes): 40
[2021-09-11] MEDS: INSULIN -REGULAR HUMAN 50 UNIT/0.5 ML ML SQ SCH (07:30)
[2021-09-11] MEDS: BUSPIRONE HCL 15 MG TABLET PO SCH (08:29)
[2021-09-11] MEDS: GABAPENTIN 300 MG CAP PO SCH (08:30)
[2021-09-11] MEDS: Levofloxacin 750mg IV 750 MG/150 ML BAG IV SCH (08:30)
[2021-09-11 08:55] VITALS: BP 141/69; TEMP 97.1
== END 2021-09-11 10:44 | disposition home or self-care (01) | DRG 872 ==
LOC: ER 03:21 → ERHOLD 05:04 → 3RD-ICU 08:27
PROVIDERS: ADMIT Internal Medicine; ATTEND Hospitalist
DX: A41.9 Sepsis, unspecified organism (principal); N10 Acute pyelonephritis; Z16.12 Extended spectrum beta lactamase (ESBL) resistance; E87.2 Acidosis; R65.20 Severe sepsis without septic shock; D69.6 Thrombocytopenia, unspecified; R77.8 Other specified abnormalities of plasma proteins; R74.8 Abnormal levels of other serum enzymes; B96.20 Unspecified Escherichia coli [E. coli] as the cause of diseases classified elsewhere; E11.65 Type 2 diabetes mellitus with hyperglycemia; E11.40 Type 2 diabetes mellitus with diabetic neuropathy, unspecified; E78.5 Hyperlipidemia, unspecified; J45.909 Unspecified asthma, uncomplicated; E05.90 Thyrotoxicosis, unspecified without thyrotoxic crisis or storm; F17.210 Nicotine dependence, cigarettes, uncomplicated; Z20.822 Contact with and (suspected) exposure to COVID-19; Z79.899 Other long term (current) drug therapy; Z90.49 Acquired absence of other specified parts of digestive tract; Z98.51 Tubal ligation status; Z83.3 Family history of diabetes mellitus
CPT/HCPCS: 0240U; 36415; 51702; 70450; 71045; 71275; 74177; 80053; 81003; 81015; 82140; 82550; 82553; 82565; 82805; 82947; 83605; 83735; 83880; 84100; 84132; 84439; 84443; 84484; 85025; 85610; 85730; 87040; 87077; 87086; 87088; 87186; 87205; 93005; 93306; 94640; 96361; 96365; 96367; 99285; J1815; J2405; J3370; J3475; J3480; J7030; J7040; J7120; Q9967

== ENCOUNTER 2024-05-16 19:14 | Emergency (ER) | payer SELFPAY ==
--- OUTSIDE RECORDS SUMMARY | 2024-05-16 19:17 | XMS REPORT | Continuity of Care Document ---
Author Name Unknown Address [address] [facility] [address] [place] [address] [facility] thconnect Address [address] [facility]. [address] [place] [address] Care Team Providers Care Bisque Finisher Name Role Phone Kelly Keller Primary Care Physician [phone] Doctor Unassigned, [place] Attending Clinician U navailable Kelly Keller Attending Clinician [phone] KELLY ALMENDAREZ Attending Clinician Unavailable ANMOL AGUAYO Attending Clinician Unavailable Leydi Conteh RN Attending Clinician [phone] Maximiliano Duran MD Attending Clinician + [phone] Anmol Benitez Attending Clinician [phone] Kelly Hernandez LMSW Attending Clinician + [phone] MAXIMILIANO DURAN Attending Clinician UnavailAurea Ayala MA Attending Clinician Unavailcate e Problems Condition Name Condition Details Condition Category Status Onset Date Resolution Date Last Treatment Date Treating Clinician Comments Source Uninsured Uninsured Disease Active 08-22 00:00: 00 [facility] Noncomplia nce with diagnostic testing Noncomplia nce with diagnostic testing Disease Active 08-22 00:00: 00 [facility] Uninsured Uninsured Disease Active 08-22 00:00: 00 [facility] Hyperthyro idism Hyperthyro idism Disease Active 11-06 00:00: 00 [facility] 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 Active 11-06 00:00: 00 [facility] Thrombocyt openia Thrombocyt openia Disease Active 11-06 00:00: 00 [facility] Beta thalassemi a trait Beta thalassemi a trait Disease Active 11-06 00:00: 00 [facility] Thrombocyt openia Thrombocyt openia Disease Active 11-06 00:00: 00 [facility] Tobacco use Tobacco use Disease Active 11-01 00:00: 00 [facility] DM2 (diabetes mellitus, type 2) DM2 (diabetes mellitus, type 2) Disease Active [facility] Allergic rhinitis Allergic rhinitis Disease Active [facility] Anxiety Anxiety Disease Active [facility] Peripheral neuropathy Peripheral neuropathy Disease Active [facility] Allergies, Adverse Reactions, Alerts Allergy Name Allergy Type Status Severity Reaction(s) Onset Date Inactive Date Treating Clinician Comments Source NO KNOWN ALLERGIE S Drug Class Active [facility] Social History Social Habit Start Date Stop Date Quantity Comments Source History SDOH Alcohol Frequency [facility] History SDOH Alcohol Std Drinks [facility] History SDOH Alcohol Binge [facility] History of tobacco use Cigarette Smoker [facility] SARS-CoV-2 (event) 2021-12-17 00:00:00 2021-12-27 13:19:00 Not sure [facility] Cigarettes smoked current (pack per day) - Reported 2021-12-27 00:00:00 2021-12-27 00:00:00 [facility] Tobacco use and exposure 2021-12-27 00:00:00 2021-12-27 00:00:00 Smokeless tobacco non-user [facility] Alcohol intake 2021-12-27 00:00:00 2021-12-27 00:00:00 Current drinker of alcohol (finding) [facility] History of Social function 2021-08-21 00:00:00 2021-08-21 00:00:00 [facility] Alcohol Comment 2017-10-20 00:00:00 2017-10-20 00:00:00 special occasions [facility] Sex Ass[birth year] At 1965 00:00:00 1965 00:00:00 [facility] Smoking Status Start Date Stop Date Source Smokes tobacco daily 2021-12-27 00:00:00 [facility] Medications Ordered Medication Name Filled Medication Name Start Date Stop Date Current Medication? Ordering Clinician Indication Dosage Frequency Signature (SIG) Comments Components Source loratadine 10 mg tablet 01-02 00:00: 00 Yes [id number] 10mg Take 1 tablet by mouth once daily as needed for Allergies. [facility] gabapentin 300 mg capsule 01-02 00:00: 00 Yes [id number] 300mg Take 1 capsule by mouth in the morning and 1 capsule at noon and 1 capsule in the evening. [facility] busPIRone 15 mg tablet 01-02 00:00: 00 Yes [id number] 15mg Take 1 tablet by mouth 2 (two) times daily as needed (anxiety). [facility] atorvastati n 80 mg tablet 01-02 00:00: 00 Yes [id number] 80mg Take 1 tablet by mouth at bedtime. [facility] metFORMIN 1,000 mg tablet 12-27 00:00: 00 Yes [id number] 1000mg Take 1 tablet by mouth in the morning and 1 tablet in the evening. Take with meals. [facility] loratadine 10 mg tablet 12-27 00:00: 00 01-02 00:00 :00 No [id number] 10mg Take 1 tablet by mouth once daily as needed for Allergies. [facility] gabapentin 300 mg capsule 12-27 00:00: 00 01-02 00:00 :00 No [id number] 300mg Take 1 capsule by mouth in the morning and 1 capsule at noon and 1 capsule in the evening. [facility] busPIRone 15 mg tablet 12-27 00:00: 00 01-02 00:00 :00 No [id number] 15mg Take 1 tablet by mouth 2 (two) times daily as needed (anxiety). [facility] atorvastati n 80 mg tablet 12-27 00:00: 00 01-02 00:00 :00 No [id number] 80mg Take 1 tablet by mouth at bedtime. [facility] fluticasone propionate 50 mcg/actuati on nasal spray 08-21 00:00: 00 Yes [id number] 2{spray } Use 2 Sprays in each nostril daily. [facility] loratadine 10 mg tablet 08-21 00:00: 00 12-27 00:00 :00 No [id number] 10mg Take 1 tablet by mouth once daily as needed for Allergies. [facility] gabapentin 300 mg capsule 08-21 00:00: 00 12-27 00:00 :00 No [id number] 300mg Take 1 capsule by mouth 3 (three) times daily. [facility] busPIRone 15 mg tablet 08-21 00:00: 00 12-27 00:00 :00 No [id number] 15mg Take 1 tablet by mouth 2 (two) times daily as needed (anxiety). [facility] Immunizations Ordered Immunization Name Filled Immunization Name Date Status Comments Source SARS-COV-2 COVID-19 AGGIE/J&J VACCINE 2020-10-10 00:00:00 Completed [facility] SARS-COV-2 COVID-19 AGGIE/J&J VACCINE 2020-10-10 00:00:00 Completed [facility] DTAP 2014-12-06 00:00:00 Completed [facility] DTAP 2014-12-06 00:00:00 Completed [facility] DTAP Unknown Completed [facility] SARS-COV-2 COVID-19 AGGIE/J&J VACCINE Unknown Completed [facility] Vital Signs Vital Name Observation Time Observation Value Comments S ource Systolic blood pressure 2021-12-27 18:22:00 151 mm[Hg] [facility] Diastolic blood pressure 2021-12-27 18:22:00 91 mm[Hg] [facility] Heart rate 2021-12-27 18:22:00 90 /min [facility] Body height 2021-12-27 18:22:00 162.6 cm [facility] Body weight 2021-12-27 18:22:00 93.35 kg [facility] BMI 2021-12-27 18:22:00 35.33 kg/m2 [facility] Oxygen saturation in Arterial blood by Pulse oximetry 2021-12-27 18:22:00 97 /min [facility] Procedures Procedure Date / Time Performed Performing Clinician Source AUTHORIZATION FOR RELEASE OF PHI 2023-03-09 05:01:00 Doctor Unassigned, [place] [facility] POCT HEMOGLOBIN A1C TEST 2021-12-27 19:41:00 Any Aguayo [facility] Encounters Start Date/Time End Date/Time Encounter Type Admission Type Attending [facility] Care Department Encounter ID Source 2023-10-02 08:01:14 2023-10-02 08:01:14 Outpatient SFA SFA [id number] Travis Schultz 2023-06-26 09:15:15 2023-06-26 09:15:15 Outpatient SFA SFA [id number] Travis Schultz 2023-03-20 13:13:37 2023-03-20 13:13:37 Outpatient SFA SFA [id number] Travis Schultz 2023-03-09 00:00:00 2023-03-09 00:00:00 Orders Only Doctor Unassigned, [place] [facility] [id number] 350.1.13.10 4.2.7.2.686 [id number] [facility] 2023-01-05 11:01:07 2023-01-05 11:01:07 Outpatient SFA SFA [id number] Travis Schultz 2022-12-03 13:19:30 2022-12-03 13:19:30 Outpatient SFA SFA [id number] Travis Schultz 2022-01-02 00:00:00 2022-01-02 00:00:00 Telephone Kelly [facility] [id number] 350.1.13.10 4.2.7.2.686 [id number] [facility] 2021-12-27 13:30:00 2021-12-27 14:44:52 Outpatient R KELLY ALMENDAREZ [facility] [id number] [facility] 2021-12-27 13:30:00 2021-12-27 14:44:52 [facility] 1.2.840.114 350.1.13.10 4.2.7.2.686 [id number] [facility] 2021-12-27 13:30:00 2021-12-27 14:44:52 Outpatient R KELLY ALMENDAREZ [facility] [id number] [facility] 2021-12-27 00:00:00 2021-12-27 00:00:00 Abstract [facility] [id number] 350.1.13.10 4.2.7.2.686 [id number] [facility] 2021-12-26 00:00:00 2021-12-26 00:00:00 [facility] (Out[facility] [id number] 350.1.13.10 4.2.7.2.686 [id number] [facility] 2021-11-20 10:30:00 2021-11-20 10:30:00 Outpatient R ANMOL AGUAYO [facility] [id number] [facility] 2021-11-20 10:30:00 2021-11-20 10:30:00 Outpatient R ANMOL AGUAYO [facility] [id number] [facility] 2021-11-19 00:00:00 2021-11-19 00:00:00 Patient Outreach Leydi Conteh SAMKAYLEEN 1.284.114 350.1.13.10 4.2.7.2.686 [id number] [facility] 2021-11-01 00:00:00 2021-11-01 00:00:00 Patient Outreach Leydi ContehEric AVINA PLAKAYLEEN 1.284.114 350.1.13.10 4.2.7.2.686 [id number] [facility] 2021-10-09 00:00:00 2021-10-09 00:00:00 Maximiliano Baker [facility] 1.84.114 350.1.13.10 4.2.7.2.686 [id number] [facility] 2021-09-23 11:00:00 2021-09-23 11:19:56 Outpatient R KELLY ALMENDAREZ [facility] [id number] [facility] 2021-09-23 11:00:00 2021-09-23 11:19:56 [facility] 1.84.114 350.1.13.10 4.2.7.2.686 [id number] [facility] 2021-09-18 00:00:00 2021-09-18 00:00:00 Orders Only Doctor Unassigned, [place] [facility] 1.2.114 350.1.13.10 4.2.7.2.686 [id number] [facility] 2021-09-10 00:00:00 2021-09-10 00:00:00 Patient Outreach Leydi Conteh 1.0.114 350.1.13.10 4.2.7.2.686 [id number] [facility] 2021-09-04 00:00:00 2021-09-04 00:00:00 Telephone Anmol Aguayo [facility] 1.0.114 350.1.13.10 4.2.7.2.686 [id number] [facility] 2021-08-30 00:00:00 2021-08-30 00:00:00 Telephone OrvilleAnmol easley [facility] 1..114 350.1.13.10 4.2.7.2.686 [id number] [facility] 2021-08-23 00:00:00 2021-08-23 00:00:00 Patient Outreach Kelly Hernandez [facility] OFF[facility] BU[facility] ONE 1.114 350.1.13.10 4.2.7.2.686 [id number] [facility] 2021-08-21 09:00:00 2021-08-21 09:48:43 Outpatient R MAXIMILIANO DURAN [facility] [id number] [facility] 2021-08-21 09:00:00 2021-08-21 09:48:43 Office Visit Maximiliano Duran [facility] 1..114 350.1.13.10 4.2.7.2.686 [id number] [facility] 2020-11-26 00:00:00 2020-11-26 00:00:00 Telephone Aurea Merlos 1..114 350.1.13.10 4.2.7.2.686 [id number] [facility] 2020-06-12 09:33:22 2020-06-12 16:40:47 Telemedici ne Visit Maximiliano Duran [facility] Building One 1.114 350.1.13.10 4.2.7.2.686 [id number] [facility] 2020-06-12 16:00:00 2020-06-12 16:00:00 Outpatient R MAXIMILIANO DURAN [facility] [id number] [facility] 2020-06-05 00:00:00 2020-06-05 00:00:00 Telephone Maximiliano Duran [facility] One 1.114 350.1.13.10 4.2.7.2.686 [id number] [facility] 2020-04-17 00:00:00 2020-04-17 00:00:00 Telephone Maximiliano Duran [facility] One 1.114 350.1.13.10 4.2.7.2.686 [id number] [facility] 2019-08-23 08:17:00 2019-08-23 16:23:38 Telemedici ne Visit Maximiliano Duran [facility] One 1.114 350.1.13.10 4.2.7.2.686 [id number] [facility] 2019-08-23 15:45:00 2019-08-23 15:45:00 Outpatient R MAXIMILIANO DURAN [facility] [id number] [facility] 2019-02-18 00:00:00 2019-02-18 00:00:00 Orders Only Doctor Unassigned, [place] [facility] 1.114 350.1.13.10 4.2.7.2.686 [id number] [facility] 2019-02-14 00:00:00 2019-02-14 00:00:00 Milomimi Maximiliano Duran [facility] 1.2.840.114 350.1.13.10 4.2.7.2.686 [id number] [facility] Results Test Description Test Time Test Comments Results Result Co mments Source LIPID [id number] 05:35:06* Test Item Value Reference Range Interpretation Comme nts CHOLESTEROL (test code = 2210) 117 MG/DL <200 TRIGLYCERIDES (test code = 2232) 85 MG/DL <150 HDL CHOLESTEROL (test code = 2220) 46 MG/DL >39 CALC LDL CHOL (test code = 2237) 54 MG/DL <100 NOTE: CALCULATED LDL IS BASED ON JUSTIN-MARTINEZ METHOD WHICHINCLUDES ADJUSTABLE TRIGLYCERIDE:VLDL CHOLESTEROL RATIO.THIS FACTOR VARIES BY MEASURED TRIGLYCERIDE AND NON-HDLCHOLESTEROL CONCENTRATIONS WITH INCREASED CALCULATED LDL SEENIN HIGHER TRIGLYCERIDE OR LOWER NON-HDL SPECIMENS. FOR MOREINFORMATION, SEE CLIENT ANNOUNCEMENT AT [email or web address] /CalcLDL-C RISK RATIO LDL/HDL (test code = 2238) 1.17 RATIO <3.22 HEMOGLOBIN [id number] 02:28:44* Test Item Value Reference Range Interpretation Comme nts HEMOGLOBIN A1c (test code = 54597) 6.4 % 4.2-5.6 H [employer] DI[employer] S ASSOCIATION GUIDELINES FOR HGB A1C: PREDIABETES/INCREASED RISK . . . . . . . 5.7-6.4% DIAGNOSIS OF DIABETES . . . . . . . . . >=6.5% WITH CONFIRMATION OR APPROPRIATE SYMPTOMS NOTE: ASSAY MAY BE AFFECTED BY HEMOGLOBINOPATHIES (SICKLE CELL ANEMIA, S-C DISEASE, OTHERS) OR ARTIFICIALLY LOWERED BY DECREASED RED CELL SURVIVAL (HEMOLYTIC ANEMIAS, BLOOD LOSS, ETC.). CONSIDER ALTERNATE TESTING OR LABORATORY CONSULTATION. UNLESS OTHERWISE INDICATED, ALL TESTING PERFORMED AT [facility] [address] [place] [address] CHOP SAW OPERATOR: AUGUSTIN BORJAS M.D. CLIA NUMBER [id number] [place] [id number] COMPREHENSIVE METABOLIC [id number] 06:53:07* Test Item Value Reference Range Interpretation Comme nts GLUCOSE (test code = 2216) 123 MG/DL 70-99 H BUN (test code = 2207) 13 MG/DL 8-23 CREATININE (test code = 2213) 0.66 MG/DL 0.60-1.30 eGFR (2020 CKD-EPI) (test code = 19714) 100 ML/MIN/1.73 >60 CALC BUN/CREAT (test code = 2234) 20 RATIO 6-28 SODIUM (test code = 2230) 143 MEQ/L 133-146 POTASSIUM (test code = 2227) 4.3 MEQ/L 3.5-5.4 CHLORIDE (test code = 2214) 105 MEQ/L 95-107 CARBON DIOXIDE (test code = 2205) 25 MEQ/L 19-31 CALCIUM (test code = 2208) 9.4 MG/DL 8.5-10.5 PROTEIN, TOTAL (test code = 2228) 6.8 G/DL 6.1-8.3 ALBUMIN (test code = 2200) 4.2 G/DL 3.5-5.2 CALC GLOBULIN (test code = 2240) 2.6 G/DL 1.9-3.7 CALC A/G RATIO (test code = 2233) 1.6 RATIO 1.0-2.6 BILIRUBIN, TOTAL (test code = 2206) 0.6 MG/DL <=1.2 ALKALINE PHOSPHATASE (test code = 2203) 141 U/L 40-136 H AST (test code = 2217) 17 U/L 9-40 ALT (test code = 221) 18 U/L 5-40 LIPID [id number] 06:53:07* Test Item Value Reference Range Interpretation Comme nts CHOLESTEROL (test code = 2210) 119 MG/DL <200 TRIGLYCERIDES (test code = 2232) 138 MG/DL <150 HDL CHOLESTEROL (test code = 2220) 48 MG/DL >39 CALC LDL CHOL (test code = 2236) 49 MG/DL <100 NOTE: CALCULATED LDL IS BASED ON JUSTIN-MARTINEZ METHOD WHICHINCLUDES ADJUSTABLE TRIGLYCERIDE:VLDL CHOLESTEROL RATIO.THIS FACTOR VARIES BY MEASURED TRIGLYCERIDE AND NON-HDLCHOLESTEROL CONCENTRATIONS WITH INCREASED CALCULATED LDL SEENIN HIGHER TRIGLYCERIDE OR LOWER NON-HDL SPECIMENS. FOR MOREINFORMATION, SEE CLIENT ANNOUNCEMENT AT [email or web address] /CalcLDL-C RISK RATIO LDL/HDL (test code = 2238) 1.02 RATIO <3.22 ALBUMIN/CREATININE RATIO, URINE, [id number] 06:19:26* Test Item Value Reference Range Interpretation Comme nts CREATININE, URINE, CONC. (test code = 2072) 98.5 MG/DL NOT ESTAB ALBUMIN, URINE, RANDOM (test code = 84136) 0.4 MG/DL NOT ESTAB CALC ALBUMIN/CREAT, RND (test code = 84095) 4 MG/G <30 Note: Albumin/Cr eatinine ratio reference interval reflects ADA and NKF guidelines. UNLESS OTHERWISE INDICATED, ALL TESTING PERFORMED AT [facility] [address] [place] [address] CHOP SAW OPERATOR: AUGUSTIN BORJAS M.D. IA NUMBER [id number] [place]. [id number] HEMOGLOBIN [id number] 02:38:32* Test Item Value Reference Range Interpretation Comme [facility] HEMOGLOBIN A1c (test code = 73281) 6.7 % 4.2-5.6 H [employer] DIAB[employer] S ASSOCIATION GUIDELINES FOR HGB A1C: PREDIABETES/INCREASED RISK . . . . . . . 5.7-6.4% DIAGNOSIS OF DIABETES . . . . . . . . . >=6.5% WITH CONFIRMATION OR APPROPRIATE SYMPTOMS NOTE: ASSAY MAY BE AFFECTED BY HEMOGLOBINOPATHIES (SICKLE CELL ANEMIA, S-C DISEASE, OTHERS) OR ARTIFICIALLY LOWERED BY DECREASED RED CELL SURVIVAL (HEMOLYTIC ANEMIAS, BLOOD LOSS, ETC.). CONSIDER ALTERNATE TESTING OR LABORATORY CONSULTATION. HEMOGLOBIN [id number] 04:58:59* Test Item Value Reference Range Interpretation Comme nts HEMOGLOBIN A1c (test code = 36177) 8.7 % 4.2-5.6 H [employer] DIABETE S ASSOCIATION GUIDELINES FOR HGB A1C: PREDIABETES/INCREASED RISK . . . . . . . 5.7-6.4% DIAGNOSIS OF DIABETES . . . . . . . . . >=6.5% WITH CONFIRMATION OR APPROPRIATE SYMPTOMS NOTE: ASSAY MAY BE AFFECTED BY HEMOGLOBINOPATHIES (SICKLE CELL ANEMIA, S-C DISEASE, OTHERS) OR ARTIFICIALLY LOWERED BY DECREASED RED CELL SURVIVAL (HEMOLYTIC ANEMIAS, BLOOD LOSS, ETC.). CONSIDER ALTERNATE TESTING OR LABORATORY CONSULTATION. UNLESS OTHERWISE INDICATED, ALL TESTING PERFORMED AT [facility] [address] [place] [address] CHOP SAW OPERATOR: AUGUSTIN BORJAS M.D. CLIA NUMBER [id number] [place]. [id number] COMPREHENSIVE METABOLIC [id number] 04:40:53* Test Item Value Reference Range Interpretation Comme nts GLUCOSE (test code = 2217) 275 MG/DL 70-99 H BUN (test code = 220) 11 MG/DL 6-20 CREATININE (test code = 221) 0.87 MG/DL 0.60-1.30 eGFR (2020 CKD-EPI) (test code = 84043) 77 ML/MIN/1.73 >60 CALC BUN/CREAT (test code = 2235) 13 RATIO 6-28 SODIUM (test code = 223) 142 MEQ/L 133-146 POTASSIUM (test code = 2228) 4.2 MEQ/L 3.5-5.4 CHLORIDE (test code = 2215) 105 MEQ/L 95-107 CARBON DIOXIDE (test code = 2206) 26 MEQ/L 19-31 CALCIUM (test code = 2209) 9.8 MG/DL 8.5-10.5 PROTEIN, TOTAL (test code = 222) 6.8 G/DL 6.1-8.3 ALBUMIN (test code = 2201) 4.2 G/DL 3.5-5.2 CALC GLOBULIN (test code = 2240) 2.6 G/DL 1.9-3.7 CALC A/G RATIO (test code = 2234) 1.6 RATIO 1.0-2.6 BILIRUBIN, TOTAL (test code = 2207) 0.3 MG/DL See_Comment [Automated me ssage] The system which generated this result transmitted reference range: <=1.2. The reference range was not used to interpret this result as normal/abnormal. ALKALINE PHOSPHATASE (test code = 2204) 161 U/L 40-136 H AST (test code = 2218) 23 U/L 9-40 ALT (test code = 2219) 21 U/L 5-40 LIPID [id number] 04:40:53* Test Item Value Reference Range Interpretation Comme nts CHOLESTEROL (test code = 2210) 247 MG/DL <200 H TRIGLYCERIDES (test code = 2232) 551 MG/DL <150 H HDL CHOLESTEROL (test code = 2220) 40 MG/DL >39 CALC LDL CHOL (test code = 2237) (NOTE) MG/DL <100 UNABLE TO CALCUL ATE A VALID LDL CHOLESTEROL WHEN THE TRIGLYCERIDEVALUE IS GREATER THAN 400 MG/DL.UNABLE TO CALCULATE A VALID LDL CHOLESTEROL WHEN THE TRIGLYCERIDEVALUE IS GREATER THAN 400 MG/DL. NOTE: CALCULATED LDL IS BASED ON JUSTIN-MARTINEZ METHOD WHICHINCLUDES ADJUSTABLE TRIGLYCERIDE:VLDL CHOLESTEROL RATIO.THIS FACTOR VARIES BY MEASURED TRIGLYCERIDE AND NON-HDLCHOLESTEROL CONCENTRATIONS WITH INCREASED CALCULATED LDL SEENIN HIGHER TRIGLYCERIDE OR LOWER NON-HDL SPECIMENS. FOR MOREINFORMATION, SEE CLIENT ANNOUNCEMENT AT [email or web address] CalcLDL-C RISK RATIO LDL/HDL (test code = 2238) (NOTE) RATIO <3.22 UNABLE TO ARLENE CULATE POCT HEMOGLOBIN A1C [id number] 19:41:00* Test Item Value Reference Range Interpretation Comme [facility] POCT HBA1C (test code = 4548-4) 9.1 % 4-6 A Lab Interpretation (test cod e = 28508-0) [facility] [id number] 19:41:00* Test Item Value Reference Range Interpretation Comme [facility] POCT HBA1C (test code = 4548-4) 9.1 % 4-6 A Lab Interpretation (test cod e = 70071-7) Abnormal [facility]
[2024-05-16 19:46] LABS: PT Prothrombin Time 11.6 SECONDS (9.4-12.5); Protime INR 1.04
[2024-05-16 19:49] LABS: Absolute Basophils 0.1 K/uL (0-0.5); Absolute Eosinophils 0.1 K/uL (0-0.5); Absolute Lymphocytes (CBC) 1.8 K/uL (0.7-4.9); Absolute Monocytes 0.5 K/uL (0.1-1.3); Absolute Neutrophil 5.7 K/uL (1.8-8.0); Basophils % 1.1 % (0-1.3); Eosinophils % 0.9 % (0-4.4); Hematocrit 46.4 % (36.0-45.0); Hemoglobin 14.8 g/dL (12.0-15.0); Lymphocytes % 22.1 % (15.3-44.8); MCH 20.1 pg (27.0-35.0); MCHC 31.9 g/dL (32.0-36.0); MPV 9.5 fL (7.6-11.3); Monocytes % 6.5 % (3.3-12.3); Neutrophils % 69.4 % (41.7-73.7); Nucleated Red Blood Cells % 0.1 % (0-0); Platelets 104 thou/uL (152-406); RBC Red Blood Cell Count 7.36 M/uL (3.86-4.86); Red Cell Distribution Width 16.7 % (12.1-15.2)
[2024-05-16 20:04] LABS: Albumin 3.8 g/dL (3.4-5.0); Anion Gap 9.6 mEq/L (5.0-15.0); Bilirubin Direct 0.2 mg/dL (0-0.2); Bilirubin Indirect, Calculated 0.3 mg/dL (0.2-0.8); Bilirubin Total 0.5 mg/dL (0.2-1.0); Magnesium 1.9 mg/dL (1.6-2.4); Potassium 3.6 mEq/L (3.5-5.1); Protein, Total 7.8 g/dL (6.4-8.2); Troponin High Sensitivity 6.1 pg/mL (<58.9)
--- NOTE | 2024-05-16 20:13 | RAD REPORT ---
EXAMINATION: ONE VIEW CHEST XR CLINICAL INDICATION: Female, 58 years old.,CHEST PAIN TECHNIQUE: Frontal chest projection is submitted. Examination is limited by patient positioning and t echnique. COMPARISON: 09/08/2021. FINDINGS: The lungs are well inflated and clear. No pneumothorax or sizable effusion. The heart is normal in s ize. Mediastinal contours are unremarkable. IMPRESSION: No acute intrathoracic abnormalities.
[2024-05-16] MEDS ORDERED: ONDANSETRON 4 MG/2 ML VIAL ONE (20:31)
[2024-05-16] MEDS ORDERED: MORPHINE 4 MG/ML SYR ONE (20:31)
[2024-05-16] MEDS ORDERED: ASPIRIN 81 MG CHEWABLE TABLET ONE (20:31)
[2024-05-16 21:12] LABS: Anisocytosis SLIGHT; Blood Morphology Comment NOTED (NOT SEEN); Microcytosis 1+; Ovalocytes SLIGHT; Platelet Estimate DECR; Poikilocytosis SLIGHT; Polychromasia 1+; White Blood Cell Scan OK (OK)
--- NOTE | 2024-05-16 22:03 | RAD REPORT ---
EXAM: CT Chest For Pe Angio TECHNIQUE: CT angiogram of the chest was performed following intravenous contrast administration, inc luding sagittal and coronal as well as maximum intensity projection reformats. One or more of the following dose reduction techniques were used: Automated exposure control, adjustment of the mA and k V according to patient size, and iterative reconstruction. Unless otherwise specified, incidental findings do not require dedicated imaging follow-up. INDICATION: [facility] MAIN CHEST PAIN Bed Name: 18 Y COMPARISON: 09/08/2021. FINDINGS: LINES/TUBES: None. PULMONARY ARTERIES: Main pulmonary arteries are normal in caliber. No filling defects within the pul monary arteries to suggest pulmonary embolus. LUNGS AND AIRWAYS: The lungs and central airways are normal without focal abnormality. PLEURA: No effusion or pneumothorax. HEART AND MEDIASTINUM: The visualized thyroid gland is normal. No mediastinal, hilar, or axillary lym phadenopathy. Heart is unremarkable. No pericardial effusion. SOFT TISSUES AND BONES: No acute osseous abnormality. Stable anterior wedge compression deformity at T12. No significant soft tissue finding. UPPER ABDOMEN: Liver contour nodularity again seen, may suggest fibrotic or cirrhotic change. Left ad renal ovoid fat-containing 2.6 cm nodule, stable, suggesting a myelolipoma. IMPRESSION: No evidence of acute central pulmonary emboli. No suspicious intrathoracic findings.. Other stable findings as above.
--- NOTE | 2024-05-16 23:30 | ER ---
Nurse's Notes [facility] Name: Remedios Elizalde Age: 58 yrs Sex: Female : 1965 Arrival Date: 05/16/2024 Time: 19:14 Bed 20 Private MD: Diagnosis: Chest wall pain, left Presentation: 05/16 19:23 Chief complaint: Patient states: CHEST PAIN THAT STARTED YESTERDAY, IT IS MAKING ME ha1 FEEL SHORTNESS OF BREATH. PAIN RADIATES TO LEFT SHOULDER. Coronavirus screen: Client denies travel out of the [place] in the last 14 days. Ebola Screen: No symptoms or risks identified at this time. Initial Sepsis Screen: Does the patient meet any 2 criteria? No. Patient's initial sepsis screen is negative. Does the patient have a suspected source of infection? No. Patient's initial sepsis screen is negative. Risk Assessment: Do you want to hurt yourself or someone else? Patient reports no desire to harm self or others. Onset of symptoms was May 16, 2024. 19:23 Method Of Arrival: Ambulatory 1 19:23 Acuity: KAYLA 2 ha1 Triage Assessment: 19:26 General: Appears uncomfortable, Behavior is cooperative. Pain: Complains of pain in ha1 chest Pain radiates to left supraclavicular area Pain currently is 10 out of 10 on a pain scale. Quality of pain is described as heavy, pressure. Neuro: Level of Consciousness is awake, alert, obeys commands, Oriented to person, place, time, situation. Cardiovascular: Capillary refill < 3 seconds Patient's skin is warm and dry. Cardiovascular: Reports chest pain. Respiratory: Reports shortness of breath Airway is patent Respiratory effort is even, unlabored, Respiratory pattern is regular, symmetrical. GI: Abdomen is round non-distended, obese. Historical: - Allergies: 19:26 No Known Allergies; ha1 - PMHx: 19:26 diabetes mellitus; ha1 - PSHx: 19:26 Cholecystectomy; Ligation of fallopian tube; ha1 - Immunization history:: Adult Immunizations up to date. - Infectious Disease History:: Denies. - Social history:: Smoking status: Patient reports the use of cigarette tobacco products, smokes one pack cigarettes per day. Screenin:20 [facility] ED Fall Risk Assessment (Adult) History of falling in the last 3 months, kj2 including since admission No falls in past 3 months (0 pts) Confusion or Disorientation No (0 pts) Intoxicated or Sedated No (0 pts) Impaired Gait No (0 pts) Mobility Assist Device Used No (0 pt) Altered Elimination No (0 pt) Score/Fall Risk Level 0 - 2 = Low Risk Oriented to surroundings, Hourly rounding (assess needs \T\ fall precautionary measures) done. Abuse screen: Denies threats or abuse. Denies injuries from another. Nutritional screening: No deficits noted. Tuberculosis screening: No symptoms or risk factors identified. Assessment: 20:15 General: Appears uncomfortable, Behavior is calm, cooperative. Pain: Complains of pain kj2 in left supraclavicular area and chest Pain currently is 6 out of 10 on a pain scale. Neuro: Level of Consciousness is awake, alert, obeys commands, Oriented to person, place, time, situation. Cardiovascular: Patient's skin is warm and dry. Respiratory: Airway is patent Respiratory effort is even, unlabored. GI: No signs and/or symptoms were reported involving the gastrointestinal system. : No deficits noted. No signs and/or symptoms were reported regarding the genitourinary system. 21:15 Reassessment: Patient appears in no apparent distress at this time. Patient and/or kj2 family updated on plan of care and expected duration. Pain level reassessed. Patient is alert, oriented x 3, equal unlabored respirations, skin warm/dry/pink. 22:15 Reassessment: Patient appears in no apparent distress at this time. Patient and/or kj2 family updated on plan of care and expected duration. Pain level reassessed. Patient is alert, oriented x 3, equal unlabored respirations, skin warm/dry/pink. 23:15 Reassessment: Patient appears in no apparent distress at this time. Patient and/or kj2 family updated on plan of care and expected duration. Pain level reassessed. Patient is alert, oriented x 3, equal unlabored respirations, skin warm/dry/pink. 23:36 Reassessment: Patient appears in no apparent distress at this time. Patient and/or kj2 family updated on plan of care and expected duration. Pain level reassessed. Patient is alert, oriented x 3, equal unlabored respirations, skin warm/dry/pink. 23:42 Reassessment: provider aware of blood pressure. kj2 Vital Signs: 19:23 BP 174 / 77; Pulse 62; Resp 18 S; Temp 97.2(T); Pulse Ox 99% on R/A; Weight 87.09 kg; ha1 Height 5 ft. 2 in. ; 20:15 BP 179 / 61; Pulse 58; Resp 20; Pulse Ox 100% ; kj2 21:15 BP 117 / 53; Pulse 58; Resp 18; Pulse Ox 96% on R/A; kj2 23:00 BP 137 / 84; Pulse 53; Resp 18; Pulse Ox 100% on R/A; kj2 23:41 BP 177 / 83; Pulse 59; Resp 20; Temp 98; Pulse Ox 99% ; kj2 19:23 Body Mass Index 35.12 (87.09 kg, 157.48 cm) ha1 ED Course: 19:17 Patient arrived in ED. im 19:26 Triage completed. ha1 19:26 [facility] Dotson [facility] sb4 19:26 Black Aguilar MD is Attending Physician. sb4 19:37 Inserted saline lock: 20 gauge in left forearm, using aseptic technique. Blood oe collected. Flushed with 10 mL NS. 19:38 EKG done, by ED staff, reviewed by Black Aguilar MD. oe 19:42 XRAY Chest (1 view) In Process Unspecified. EDMS 20:20 Arm band placed on Patient placed in an exam room, on a stretcher. EKG completed in kj2 triage. Results shown to MD. EKG completed in triage. Results shown to MD. 20:20 Patient has correct armband on for positive identification. Bed in low position. Adult kj2 w/ patient. Provided Education on: call light. 20:26 Thi Cummings, RN is Primary Nurse. kj2 21:05 CT Chest For PE Angio In Process Unspecified. EDMS 23:42 No provider procedures requiring assistance completed. kj2 23:43 IV discontinued, intact, bleeding controlled, No redness/swelling at site. Pressure kj2 dressing applied. Administered Medications: 20:49 Drug: Aspirin PO Chewable Tablet 324 mg PO once; 81 mg tablets x 4 Route: PO; kj2 23:59 Follow up: Response: No adverse reaction kj2 20:49 Drug: morphine IVP or IV 4 mg IVP once over 4 mins Route: IVP; Infused Over: 4 mins; kj2 Site: left antecubital; 23:39 Follow up: Response: No adverse reaction kj2 20:49 Drug: Ondansetron IVP 4 mg IVP once; over 2 minutes Route: IVP; Site: left antecubital; kj2 23:39 Follow up: Response: No adverse reaction kj2 Medication: 20:54 VIS not applicable for this client. kj2 Outcome: 23:30 Discharge ordered by . raoul 23:42 Discharged to home ambulatory, with family, kj2 23:42 Condition: stable 23:42 Discharge instructions given to patient, family, Instructed on discharge instructions, follow up and referral plans. medication usage, Demonstrated understanding of instructions, follow-up care, medications, Prescriptions given X 3, 23:58 Patient left the ED. kj2 Signatures: Dispatcher [employer] EDMS Dc Callejas Heidy, RN RN ha1 Namita Dotson PADarynC PA-C sb4 Chelsey Shirley Krystal, RN RN kj2
--- NOTE | 2024-05-16 23:30 | EDPHYS ---
Physician Documentation [facility] Name: Remedios Elizalde Age: 58 yrs Sex: Female : 1965 Arrival Date: 05/16/2024 Time: 19:14 Bed 20 Private MD: ED Physician Black Aguilar HPI: 05/16 20:26 This 58 yrs old Female presents to ER via Ambulatory with complaints of Back sb4 Pain, Chest Pain. 20:26 patient reports pain that began in her right shoulder blade a few days ago. states she sb4 has been trying to take care of it at home, but it has slowly moved to her left chest/breast. denies any specific pain with movement. states it hurts at all times. denies any chest pain or shortness of breath. denies any history of heart disease, does smoke daily. Historical: - Allergies: 19:26 No Known Allergies; ha1 - PMHx: 19:26 diabetes mellitus; ha1 - PSHx: 19:26 Cholecystectomy; Ligation of fallopian tube; ha1 - Immunization history:: Adult Immunizations up to date. - Infectious Disease History:: Denies. - Social history:: Smoking status: Patient reports the use of cigarette tobacco products, smokes one pack cigarettes per day. ROS: 20:26 Constitutional: Negative for fever, chills, and weight loss, sb4 20:26 Cardiovascular: Positive for chest pain, 20:26 All other systems are negative, Exam: 20:26 Head/Face: Normocephalic, atraumatic. Eyes: Extra-ocular motions intact. Periorbital sb4 areas with no swelling, redness, or edema. ENT: Mucous membranes moist. Chest/axilla: Normal chest wall appearance and motion. Nontender with no deformity. No lesions are appreciated. Cardiovascular: Regular rate and rhythm with a normal S1 and S2. Respiratory: No increased work of breathing, no retractions or nasal flaring. Abdomen/GI: Soft, non-tender, no distension. 20:26 Constitutional: The patient appears alert, awake, in obvious pain, uncomfortable, tearful 05/17 00:18 Neuro: Exam negative for acute changes, focal neuro deficits, motor deficits, sb4 confusion, Vital Signs: 05/16 19:23 BP 174 / 77; Pulse 62; Resp 18 S; Temp 97.2(T); Pulse Ox 99% on R/A; Weight 87.09 kg; ha1 Height 5 ft. 2 in. ; 20:15 BP 179 / 61; Pulse 58; Resp 20; Pulse Ox 100% ; kj2 21:15 BP 117 / 53; Pulse 58; Resp 18; Pulse Ox 96% on R/A; kj2 23:00 BP 137 / 84; Pulse 53; Resp 18; Pulse Ox 100% on R/A; kj2 23:41 BP 177 / 83; Pulse 59; Resp 20; Temp 98; Pulse Ox 99% ; kj2 19:23 Body Mass Index 35.12 (87.09 kg, 157.48 cm) ha1 MDM: 19:26 Medical Screening Exam initiated sb4 23:29 Data reviewed: vital signs, nurses notes, lab test result(s), EKG, radiologic studies, sb4 and as a result, I will discharge patient. Counseling: I had a detailed discussion with the patient and/or guardian regarding the historical points, exam findings, and any diagnostic results supporting the discharge/admit diagnosis, the presence of at least one elevated blood pressure reading (>120/80) during this emergency department visit, lab results, radiology results, the need for outpatient follow up, for definitive care, to return to the emergency department if symptoms worsen or persist or if there are any questions or concerns that arise at home. 05/17 00:18 Scoring Tools HEART Score: History: ECG: Age: Risk Factors: 1 or 2 risk factors (1), sb4 Troponin: Total Score = 2. 05/16 19:27 Order name: Basic Metabolic Panel; Complete Time: 20:10 sb4 05/16 19:27 Order name: CBC with Diff; Complete Time: 21:13 sb4 05/16 19:27 Order name: LFT's; Complete Time: 20:10 sb4 05/16 19:27 Order name: Magnesium; Complete Time: 20:10 sb4 05/16 19:27 Order name: NT PRO-BNP; Complete Time: 20:10 sb4 05/16 19:27 Order name: PT-INR; Complete Time: 19:49 sb4 05/16 19:27 Order name: Troponin HS; Complete Time: 20:10 sb4 05/16 21:12 Order name: CBC Smear Scan; Complete Time: 21:13 EDMS 05/16 22:18 Order name: Troponin High Sensitivity; Complete Time: 23:26 sb4 05/16 19:27 Order name: XRAY Chest (1 view); Complete Time: 20:16 sb4 05/16 20:17 Order name: CT Chest For PE Angio; Complete Time: 22:04 sb4 05/16 19:27 Order name: Cardiac monitoring; Complete Time: 20:49 sb4 05/16 19:27 Order name: EKG - Nurse/Tech; Complete Time: 19:28 sb4 05/16 19:27 Order name: IV Saline Lock; Complete Time: 21:35 sb4 05/16 19:27 Order name: Labs collected and sent; Complete Time: 21:35 sb4 05/16 19:27 Order name: O2 Per Protocol; Complete Time: 21:35 sb4 05/16 19:27 Order name: O2 Sat Monitoring; Complete Time: 21:35 sb4 EC/16 19:33 Rate is 64 beats/min. Rhythm is regular, Normal Sinus Rhythm with Right bundle branch sb4 block. MI interval is normal at 140 msec. QRS interval is normal at 132 msec. QT interval is normal at 454 msec. No Q waves. T waves are Normal. No ST changes noted. Clinical impression: No evidence of ischemia. Interpreted by me. Reviewed by me. Administered Medications: 20:49 Drug: Aspirin PO Chewable Tablet 324 mg PO once; 81 mg tablets x 4 Route: PO; kj2 23:59 Follow up: Response: No adverse reaction kj2 20:49 Drug: morphine IVP or IV 4 mg IVP once over 4 mins Route: IVP; Infused Over: 4 mins; kj2 Site: left antecubital; 23:39 Follow up: Response: No adverse reaction kj2 20:49 Drug: Ondansetron IVP 4 mg IVP once; over 2 minutes Route: IVP; Site: left antecubital; kj2 23:39 Follow up: Response: No adverse reaction kj2 Disposition Summary: 05/16/24 23:30 Discharge Ordered Notes: Location: Home sb4 Problem: new sb4 Symptoms: have improved sb4 Condition: Stable sb4 Diagnosis - Chest wall pain, left sb4 Followup: sb4 - With: Private Physician - When: As needed - Reason: Trouble breathing, Worsening of condition Discharge Instructions: - Discharge Summary Sheet sb4 - Musculoskeletal Pain sb4 - Pinched Nerve sb4 Forms: - Prescription Opioid Use sb4 - Patient Portal Instructions sb4 - Leadership Thank You Letter sb4 Prescriptions: - Prednisone 20 mg Oral Tablet - take 1 tablet ORAL route once daily for 5 days; 5 tablet; Refills: 0, Product sb4 Selection Permitted - Cyclobenzaprine 10 mg Oral Tablet - take 1 tablet ORAL route every 8 hours As needed; 30 tablet; Refills: 0, sb4 Product Selection Permitted - Tramadol 50 mg Oral Tablet - take 1 tablet ORAL route every 8 hours as needed; 12 tablet; Refills: 0, sb4 Product Selection Permitted Signatures: Dispatcher [employer] EDMS Imelda Gannon, RN RN ha1 Namita Dotson PAArsalan PAArsalan sb4 Thi Cummings RN RN kj2 Corrections: (The following items were deleted from the chart) 19:27 19:27 Chest Single View+[email or web address] ordered. EDMS EDMS 22:18 22:18 Troponin High Sensitivity+C.LAB.[email or web address] ordered. EDMS EDMS
[2024-05-17 00:46] VITALS: BP 177/83; TEMP 98; O2SAT 99
--- NOTE | 2024-05-17 11:57 | EKG ---
Test Date: 2024-05-16 Test Time: 19:28:19 Pediatric Social Worker: [place] MEASUREMENT RESULTS: Intervals: Rate: 64 MN: 140 QRSD: 132 QT: 454 QTc: 468 [place]: P: 61 MN: 140 QRS: 87 T: 61 INTERPRETIVE STATEMENTS: Normal sinus rhythm Right bundle branch block Abnormal ECG Compared to ECG 09/08/2021 05:43:35 Right bundle-branch block now present Electronically Signed On 05-17-24 11:55:45 SOLVENT PROCESS EXTRACTOR OPERATOR by Rylan Lazo
== END 2024-05-16 23:58 | disposition home or self-care (01) ==
LOC: ER 19:14
DX: R07.89 Other chest pain (principal); F17.210 Nicotine dependence, cigarettes, uncomplicated
CPT/HCPCS: 36415; 71045; 71275; 80048; 80076; 83735; 83880; 84484; 85025; 85610; 93005; 96374; 96375; 99285; J2405; Q9967